=== PATIENT | male | born 1945 | race Caucasian/White ===

== ENCOUNTER 2019-03-23 15:20 | IRF | payer OTHER, MEDICARE, SELFPAY ==
--- NOTE | ~2019-03-23 | CT_ITS ---
EXAMINATION: CT brain wo con EXAM DATE: 03/27/2019 12:31 INDICATION: Temporary change in mental status. TECHNIQUE: Spiral CT of the head was performed without contrast. Axial, coronal and sagittal images were reviewed. The dose-length product (DLP) for this examination was 605.33 mGy-cm. The exposure w as tailored according to patient size, and iterative reconstruction (ASIR) was used as additional dos e reduction technique. There is no prior study for comparison. FINDINGS: There is small to moderate region of lost left temporal wilson-white differentiation consiste nt with infarction, probably subacute infarction. There is a left frontotemporal craniotomy defect. T here is a low density extra-axial region overlying the left parietal lobe which is lens shaped, measu ring about 4 cm diameter by 1 cm in maximal thickness, could be a subacute to chronic subdural or epi dural hematoma. There is no obstructive hydrocephalus. There is no acute intracranial hemorrhage. There is mild cereb ral atrophy and microangiopathy. No evidence of intracranial mass. Orbits and soft tissues are unrema rkable. IMPRESSION: 1. Small to moderate-sized left temporal lobe hypodensity, probably subacute infarction. No apprecia ble volume loss at this point which would indicate more chronic appearance. Overlying craniotomy. 2. Left parietal extra-axial low density fluid collection most likely subacute to chronic subdural o r epidural hematoma. 3. Age-related findings. 4. Are there any prior studies at outside institution for comparison? Reviewed, dictated and finalized at location A. NGING FUNERAL DIRECTOR IMPRESSION: 1. Small to moderate-sized left temporal lobe hypodensity, probably subacute i nfarction. No appreciable volume loss at this point which would indicate more c hronic appearance. Overlying craniotomy. 2. Left parietal extra-axial low density fluid collection most likely subacute to chronic subdural or epidural hematoma. 3. Age-related findings. 4. Are there any prior studies at outside institution for comparison?
--- NOTE | ~2019-03-23 | XR_ITS ---
XR chest 2V 04/09/2019 19:17 Indication: Pneumonia. Weakness. Procedure: AP and lateral views of the chest Comparison: 04/07/2019 Findings: Cardiomegaly. Extensive bilateral airspace consolidation with superimposed pulmonary fibros is of the lung bases. There are changes of left distal clavicular osteotomy. There is an anchor in th e left humeral head. No pneumothorax or pleural effusion. Impression: 1: There is bilateral symmetric airspace disease predominantly affecting the mid and lower lungs whic h may represent edema and/or pneumonia. 2: Probable superimposed chronic interstitial lung disease of the lung bases. Reviewed, dictated and finalized at location A. MECHANIC Impression: 1: There is bilateral symmetric airspace disease predominantly affecting the mi d and lower lungs which may represent edema and/or pneumonia. 2: Probable superimposed chronic interstitial lung disease of the lung bases.
--- NOTE | ~2019-03-23 | XR_ITS ---
EXAMINATION: XR chest 2V EXAM DATE: 04/07/2019 15:00 INDICATION: Leukocytosis, follow-up. TECHNIQUE: Frontal and lateral projections of the chest obtained and reviewed. There is no prior lakisha dy for comparison. FINDINGS: There is moderate amount of bilateral ill-defined airspace disease, probably pneumonia. Ed zoraida less likely. The cardiomediastinal silhouette is prominent but magnified on this AP technique. Th ere is no pneumothorax suspected. There are no pleural effusions. IMPRESSION: Moderate amount of ill-defined bibasilar airspace disease probably pneumonia. Reviewed, dictated and finalized at location A. AGING TECH
--- NOTE | 2019-03-23 18:13 | ADMGEN ---
This patient, Venkatesh Menard, was admitted to [facility] Room 225-02. Patient/family oriented to hospital policies and general routines including ID bracelet, bed and alarms, visiting hours, pain management, procedures, bathroom and other care routines, personal items, smoking policy, room service/diet, and visiting hours. Valuables list has been completed. Information on how to activate the Rapid Response Team has been discussed. Patient/Family are encouraged to report perceived risks to care and to ask questions if they do not understand what they are told or what they should do.
[2019-03-23 18:46] VITALS: BMI 37.9
[2019-03-23 19:24] VITALS: BP 110/57; PULSE 69; RESP 18; TEMP 36.6; O2SAT 98
[2019-03-23 20:57] VITALS: PULSE 62
[2019-03-23] MEDS: carvediloL 6.25 MG TABLET PO (20:57)
[2019-03-23] MEDS: FAMOTIDINE 20 MG TABLET PO (20:59)
[2019-03-23] MEDS: DILTIAZEM HCL 30 MG TABLET PO (21:00)
[2019-03-23] MEDS: levETIRAcetam 500 MG TABLET 1500 MG PO (21:00)
[2019-03-23] MEDS: MONTELUKAST SODIUM 10 MG TABLET PO (21:01)
[2019-03-23] MEDS: NIACIN SA 500 MG TABLET 2000 MG PO (21:02)
[2019-03-23] MEDS: HEPARIN SODIUM 5,000 UNITS/ML VIAL 5000 UNITS SUB-Q (21:03)
[2019-03-23] MEDS: PSYLLIUM POWDER PACKET 1 PACKET PO (21:03)
[2019-03-23] MEDS: ACETAMINOPHEN 325 MG TABLET 650 MG PO (21:07)
[2019-03-23 21:16] LABS: Glucose Point of Care 82 (65-105)
[2019-03-23 22:00] VITALS: BP 96/63; PULSE 76; RESP 18; TEMP 36.4; O2SAT 99
[2019-03-24] VITALS (12 sets, daily range): BP systolic 102–116; BP diastolic 56–73; PULSE 56–98; RESP 16–20; TEMP 36.6–37.2; O2SAT 90–100
[2019-03-24] MEDS: DILTIAZEM HCL 30 MG TABLET PO ×4 (02:24→17:43)
[2019-03-24 05:11] LABS: Basophils Absolute Auto 0.2 K/mm3 (0.0-0.1); Basophils Percent Auto 1.7 % (0.2-1.2); Eosinophils Absolute Auto 0.7 K/mm3 (0-0.3); Eosinophils Percent Auto 5.7 % (0-4.4); Hematocrit 37.6 % (42.0-52.0); Hemoglobin 11.5 g/dL (14.0-18.0); Immature Granulocyte Absolute 0.07 K/mm3 (0.00-0.031); Immature Granulocyte Percent A 0.6 % (0-0.5); Lymphocytes Absolute Auto 1.94 K/mm3 (0.9-3.2); Lymphocytes Percent Auto 16.2 % (18.3-44.2); Mean Corpuscular HGB Conc 30.6 g/dl (32-36); Mean Corpuscular Hemoglobin 28.5 pg (26-34); Mean Corpuscular Volume 93.1 fl (80-100); Mean Platelet Volume 10.6 fl (7.4-10.4); Monocytes Absolute Auto 1.8 K/mm3 (0.1-0.6); Monocytes Percent Auto 14.7 % (2.6-8.5); Neutrophils Absolute Auto 7.3 K/mm3 (1.3-6.7); Neutrophils Percent Auto 61.1 % (45.5-73.1); Platelet Count Result 420 k/mm3 (150-375); Red Blood Count 4.04 M/mm3 (4.6-6.20); Red Cell Distribution Width 17.8 % (11.5-14.5)
[2019-03-24] MEDS: HEPARIN SODIUM 5,000 UNITS/ML VIAL 5000 UNITS SUB-Q ×3 (05:56→21:01)
[2019-03-24 06:43] LABS: Blood Urea Nitrogen 42 mg/dL (9-20); Calcium 9.8 mg/dL (8.4-10.2); Carbon Dioxide 25 mmol/L (22-30); Chloride 102 mmol/L (98-107); Estimated CRCL calculation 74 ml/min; Estimated Glomerular Filt Rate > 60; Glucose 124 mg/dL (75-110); Potassium 4.3 mmol/L (3.4-5.0); Sodium 136 mmol/L (137-145)
[2019-03-24 07:03] LABS: Glucose Point of Care 131 (65-105)
--- NOTE | 2019-03-24 10:00 | WPDREHABHP ---
H&P: HPI History of Present Illness Chief complaint: Subdural Hematoma Narrative: Venkatesh Menard is a 74 year old maleHISTORY OF PRESENT ILLNESS: The patient's primary rehab impairment category is brain dysfunction/traumatic The etiologic diagnosis is subdural hematoma I saw this patient [id number] on March 24, 2019 at 10:00 a.m. The patient is a 74-year-old left-handed white male was recently hospitalized at [facility] from 02/06 through February 21, 2019 in the setting of a left convexity subdural hematoma after suffering a fall. He underwent a left craniotomy for evacuation on on February [address] Garcia. He was discharged to the [facility] [place] on February 21, 2019 for inpatient rehabilitation. The same day he presented to [facility] emergency department following an episode of apnea and desaturation in the 70s while at the [facility]. In the emergency department his saturation was 85% on room air. He was placed on supplemental oxygen. Physical examination revealed bilateral rhonchi and rales as well as bilateral lower extremity edema. Chest x-ray demonstrated new patchy airspace opacities, new small bilateral pleural effusions and suggestion of pulmonary edema. BNP was greater than 10,000, troponin 0.05, WBC count of 15,000 and urinalysis suggestive of urinary tract infection. Repeat CT of the head demonstrated persistent subdural hematoma with a small amount of pneumocephalus decreased in volume. Neurology was consulted and felt there was no need for neurosurgical intervention. They deferred management of the patient to be medicine team. Bilateral upper lower extremity Dopplers were negative for DVT. On February 23, 2019 the patient had witnessed tonic-clonic activity as well as right eye deviation and facial twitching. This was stabilized with Keppra. Vimpat and Ativan were also added. EEG monitoring showed left hemispheric slowing and moderate generalized slowing but no seizure activity. He has continued on Keppra 1500 milligram twice a day. On February 26, 2019 he was noted to have a purulent drainage from his craniotomy site and he was started on linezolid, cefepime and Flagyl. The drain is absent now. His aspirin was restarted for underlying coronary artery disease but Plavix remains on hold due to recent bleed. Repeat head CT on March 06, 2019 was stable. He did have a fall on March 16. On March 19, 2019 the patient reported bilateral frontal headaches. Repeated CT on March 19 demonstrated no acute intracranial process. Patient was ultimately weaned off of oxygen and is currently on room air. There is strict monitoring of INR knows and he is on Lasix 20 milligram daily. DVT prophylaxis with heparin is continued his diet has been upgraded to regular consistently with thin liquids. He is to get a supplemental tube feedings if he eats less than 50%. Patient does have aphasia but is able to communicate with some difficulty Therapy was initiated at the acute care facility and the patient transferred to us from [facility] on March 23, 2019 FALLS OR SURGERIES: The patient has had major surgeries in the 100 days prior to admission. They had falls in the past year. They had falls with injury in the past year. 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 PAST SURGICAL HISTORY: Status post craniotomy for evacuation on February 06, 2019, nephrectomy, coronary stent placement. SOCIAL HISTORY: Patient is a retired correct industrial truck operator. He does smokes cigarettes. The patient lives with his in a 1 level home with the level entry. The patient was completely independent prior with no assistive device.
[2019-03-24] MEDS: allopurinoL 100 MG TABLET PO (10:29)
[2019-03-24] MEDS: ASPIRIN 81 MG CHEWABLE TABLET PO (10:30)
[2019-03-24] MEDS: FAMOTIDINE 20 MG TABLET PO ×2 (10:31→20:57)
[2019-03-24] MEDS: FENOFIBRATE,MICRONIZED 48 MG TABLET PO (10:31)
[2019-03-24] MEDS: FUROSEMIDE 20 MG TABLET PO (10:31)
[2019-03-24] MEDS: levETIRAcetam 500 MG TABLET 1500 MG PO ×2 (10:31→20:57)
[2019-03-24] MEDS: INSULIN GLARGINE (*BKC) 100 UNITS/ML 40 UNITS SUB-Q (10:32)
[2019-03-24] MEDS: PAROXETINE 20 MG TABLET PO (10:32)
[2019-03-24] MEDS: ROSUVASTATIN 5 MG TABLET PO (10:32)
[2019-03-24] MEDS: PSYLLIUM POWDER PACKET 1 PACKET PO ×2 (10:32→21:00)
[2019-03-24] MEDS: carvediloL 6.25 MG TABLET PO ×2 (10:35→20:58)
[2019-03-24] MEDS: INSULIN ASPART (*BKC) 100 UNITS/ML 9 UNITS SUB-Q ×3 (11:13→17:44)
[2019-03-24 12:16] LABS: Glucose Point of Care 210 (65-105)
[2019-03-24] MEDS: INSULIN ASPART (*BKC) 100 UNITS/ML SUB-Q (12:38)
[2019-03-24] MEDS: ALBUTEROL SULFATE NEB 2.5 MG/0.5 ML INH INHALATION ×2 (13:53→20:13)
[2019-03-24 16:40] LABS: Glucose Point of Care 164 (65-105)
[2019-03-24] MEDS: NIACIN SA 500 MG TABLET 2000 MG PO (20:56)
[2019-03-24] MEDS: MONTELUKAST SODIUM 10 MG TABLET PO (21:00)
[2019-03-24 21:20] LABS: Glucose Point of Care 162 (65-105)
[2019-03-25] VITALS (12 sets, daily range): BP systolic 93–99; BP diastolic 40–71; PULSE 56–101; RESP 16–20; TEMP 36.5–37; O2SAT 92–98
[2019-03-25] MEDS: DILTIAZEM HCL 30 MG TABLET PO ×5 (00:11→22:33)
[2019-03-25] MEDS: HEPARIN SODIUM 5,000 UNITS/ML VIAL 5000 UNITS SUB-Q ×3 (05:50→21:13)
[2019-03-25 06:22] LABS: Glucose Point of Care 162 (65-105)
[2019-03-25] MEDS: ALBUTEROL SULFATE NEB 2.5 MG/0.5 ML INH INHALATION ×3 (09:23→19:04)
[2019-03-25] MEDS: allopurinoL 100 MG TABLET PO (10:54)
[2019-03-25] MEDS: FUROSEMIDE 20 MG TABLET PO (10:55)
[2019-03-25] MEDS: PAROXETINE 20 MG TABLET PO (10:55)
[2019-03-25] MEDS: FENOFIBRATE,MICRONIZED 48 MG TABLET PO (10:55)
[2019-03-25] MEDS: ROSUVASTATIN 5 MG TABLET PO (10:55)
[2019-03-25] MEDS: ASPIRIN 81 MG CHEWABLE TABLET PO (10:56)
[2019-03-25] MEDS: FAMOTIDINE 20 MG TABLET PO ×2 (10:56→21:12)
[2019-03-25] MEDS: PSYLLIUM POWDER PACKET 1 PACKET PO ×2 (10:58→21:11)
[2019-03-25] MEDS: levETIRAcetam 500 MG TABLET 1500 MG PO ×2 (10:58→21:12)
[2019-03-25] MEDS: INSULIN ASPART (*BKC) 100 UNITS/ML 9 UNITS SUB-Q ×3 (11:00→18:06)
[2019-03-25] MEDS: INSULIN GLARGINE (*BKC) 100 UNITS/ML 40 UNITS SUB-Q (11:05)
[2019-03-25 12:24] LABS: Glucose Point of Care 207 (65-105)
[2019-03-25] MEDS: INSULIN ASPART (*BKC) 100 UNITS/ML SUB-Q (13:55)
[2019-03-25] MEDS: carvediloL 6.25 MG TABLET PO ×2 (13:56→21:13)
[2019-03-25 17:36] LABS: Glucose Point of Care 197 (65-105)
--- NOTE | 2019-03-25 18:22 | WPDNEURORHBP ---
Subjective Date/time seen: 03/25/19 18:22 Interval history: patient has mild headache and aphasic defect which is clearer with this examiner talks to him repeatedly his also weak however not aware of it right more so than the left side He denies any shortness of breath chest pain and follows commands quite well so the information he is given to this examiner is quite acute in spite of the aphasic Review of Systems Review of Systems: All systems reviewed & are unremarkable except as noted in HPI and below Functional Status Ambulation Ability Ambulation Assistive Devices: Walker, Wheeled Exam Const: General: comfortable and no acute distress Eyes: General: appearance normal, both eyes and all related structures Neck: Neck: supple and no JVD Resp: Effort & Inspection: normal respiratory effort Auscultation: clear to auscultation bilaterally Cardio: Rate: regular rate Rhythm: regular rhythm GI: GI Palp: Yes soft Auscultation: normal bowel sounds Other: the G-tube is functioning well and the site looks clean Skin: General skin exam: normal color and no rashes or lesions noted Neuro: Other: aphasia and right-sided hemiparesis, the aphasic component is excessive more so than the comprehensive as the patient is able to follow simple commands Extrem: General: normal to inspection Objective Data Vital Signs Vital Signs: Vital Signs - 24 hr 03/24/19 20:15 03/24/19 20:19 03/24/19 20:25 Temperature Pulse Rate 56 L 60 Respiratory Rate 16 16 Blood Pressure Pulse Oximetry 95 03/24/19 20:58 03/24/19 22:00 03/25/19 06:00 Temperature 37.2 C 36.5 C Pulse Rate 72 56 L 78 Respiratory Rate 19 19 Blood Pressure 102/56 L 99/71 L Pulse Oximetry 95 98 03/25/19 09:24 03/25/19 09:32 03/25/19 13:56 Temperature Pulse Rate 80 83 76 Respiratory Rate 20 16 Blood Pressure Pulse Oximetry 03/25/19 14:00 03/25/19 15:15 03/25/19 15:23 Temperature 37.0 C Pulse Rate 56 L 83 84 Respiratory Rate 18 16 16 Blood Pressure 93/42 L Pulse Oximetry 92 Intake/Output Intake/Output: Intake & Output 03/22/19 03/23/19 03/24/19 03/25/19 23:59 23:59 23:59 23:59 Intake Total 1340 480 Balance 1340 480 Meds/Results Medications: Active Medications Generic Name Dose Route Start Last Admin Trade Name Freq PRN Reason Stop Dose Admin Acetaminophen 650 mg 03/23/19 17:44 03/23/19 21:07 Tylenol Tablet PO 650 mg Q4H PRN Administration Headache Albuterol 2.5 mg 03/24/19 08:00 03/25/19 15:15 Albuterol Sulf Neb 2.5mg/0.5ml INHALATION 2.5 mg TIDRT MAXINE Administration Allopurinol 100 mg 03/24/19 08:00 03/25/19 10:54 Zyloprim PO 100 mg DAILY@0800 MAXINE Administration Aspirin 81 mg 03/24/19 08:00 03/25/19 10:56 Aspirin Chewable PO 81 mg DAILY@0800 MAXINE Administration Carvedilol 6.25 mg 03/23/19 21:00 03/25/19 13:56 Coreg PO 6.25 mg Q12HR MAXINE Administration Dextrose 12.5 gm 03/23/19 15:53 Dextrose 50% Syringe IV PUSH PRN PRN Hypoglycemia Protocol Diltiazem HCl 30 mg 03/23/19 18:00 03/25/19 18:08 Cardizem Tab PO 30 mg Q6HR MAXINE Administration Famotidine 20 mg 03/23/19 21:00 03/25/19 10:56 Pepcid PO 20 mg Q12HR MAXINE Administration Fenofibrate 48 mg 03/24/19 09:00 03/25/19 10:55 Tricor PO 48 mg QAM MAXINE Administration Furosemide 20 mg 03/24/19 09:00 03/25/19 10:55 Lasix Tablet PO 20 mg DAILY MAXINE Administration Glucagon 1 mg 03/23/19 15:53 Glucagon For Inj IM PRN PRN Hypoglycemia Protocol Glucose 15 gm 03/23/19 15:53 Glutose 15 PO PRN PRN Hypoglycemia Protocol Heparin Sodium (Porcine) 5,000 units 03/23/19 22:00 03/25/19 14:25 Heparin Sodium SUB-Q 5,000 units Q8HR MAXINE Administration Dextrose 1,000 mls @ 100 mls/hr 03/23/19 15:53 Dextrose 5% 1,000 Ml IVPB PRN PRN Hypoglycemia Protocol Insulin As
[2019-03-25] MEDS: ACETAMINOPHEN 325 MG TABLET 650 MG PO (18:26)
[2019-03-25 21:02] LABS: Glucose Point of Care 202 (65-105)
[2019-03-25] MEDS: NIACIN SA 500 MG TABLET 2000 MG PO (21:12)
[2019-03-25] MEDS: MONTELUKAST SODIUM 10 MG TABLET PO (21:13)
[2019-03-26] VITALS (12 sets, daily range): BP systolic 104–127; BP diastolic 36–63; PULSE 67–91; RESP 16–20; TEMP 36.5–37.3; O2SAT 95–97; BMI 37.9
[2019-03-26] MEDS: DILTIAZEM HCL 30 MG TABLET PO ×4 (05:35→23:27)
[2019-03-26] MEDS: HEPARIN SODIUM 5,000 UNITS/ML VIAL 5000 UNITS SUB-Q ×3 (05:36→21:00)
[2019-03-26 06:31] LABS: Glucose Point of Care 165 (65-105)
[2019-03-26] MEDS: ALBUTEROL SULFATE NEB 2.5 MG/0.5 ML INH INHALATION ×3 (07:55→20:35)
[2019-03-26] MEDS: INSULIN ASPART (*BKC) 100 UNITS/ML 9 UNITS SUB-Q ×3 (09:53→17:53)
[2019-03-26] MEDS: allopurinoL 100 MG TABLET PO (09:54)
[2019-03-26] MEDS: FAMOTIDINE 20 MG TABLET PO ×2 (09:54→20:59)
[2019-03-26] MEDS: carvediloL 6.25 MG TABLET PO ×2 (09:54→20:59)
[2019-03-26] MEDS: ASPIRIN 81 MG CHEWABLE TABLET PO (09:54)
[2019-03-26] MEDS: INSULIN GLARGINE (*BKC) 100 UNITS/ML 40 UNITS SUB-Q (09:55)
[2019-03-26] MEDS: levETIRAcetam 500 MG TABLET 1500 MG PO ×2 (09:55→20:58)
[2019-03-26] MEDS: FENOFIBRATE,MICRONIZED 48 MG TABLET PO (09:55)
[2019-03-26] MEDS: FUROSEMIDE 20 MG TABLET PO (09:55)
[2019-03-26] MEDS: ROSUVASTATIN 5 MG TABLET PO (09:56)
[2019-03-26] MEDS: PAROXETINE 20 MG TABLET PO (09:56)
[2019-03-26] MEDS: PSYLLIUM POWDER PACKET 1 PACKET PO ×2 (09:56→20:59)
[2019-03-26 12:04] LABS: Glucose Point of Care 234 (65-105)
--- NOTE | 2019-03-26 12:39 | RPD ---
INDIVIDUALIZED PLAN OF CARE FOR Venkatesh Menard Brief Synthesis of Pre-Admission Screen, Post-Admission Evaluation and Therapy Evaluations: The patient presents to rehab with subdural hematoma. Comorbidities include status post left craniotomy 02/07, aphasia, acute respiratory failure, generalized tonic-clonic seizures, purulent discharge from surgical wound, leukocytosis, fungal rash, renal cell carcinoma, dysphagia, atrial fibrillation, hypertension, coronary artery disease, chronic kidney disease, diabetes mellitus, chronic obstructive pulmonary disease. The patient needs physician monitoring and treatment of anemia, perioperative blood loss, monitoring for adverse reactions to new medications, monitoring of infection, and seizure management. The patient requires nursing services for frequent neuro checks, anticoagulation therapy, medication management and education, pressure relief and skin care management, monitoring of labs, bowel and bladder training, diabetes management and education, and fall/safety precautions. Deficits include:ADLs, Balance, Cognition, Endurance, Mobility, Pain Management, ROM, Safety, Speech, Strength, Transfers [employer]ing [employer] Operator/Case Management for: Discharge Planning and Patient/Family Counseling Physical Therapy: 5 days per week for 60 minutes. Treatments may include: Therapeutic Exercise, Gait Training, Neuromuscular Re-education, Transfer Training, Community Reintegration, Bed Mobility, Patient/Family Education, Wheelchair Mobility Group Therapy/Concurrent Therapy Rationales: -Improve attention span during functional activities in a distracted environment. -Enhance problem solving and/or adequate judgment skills during functional activities in a distracted environment. -Promote increased safety awareness in a distracted environment to reduce fall risk with functional tasks, transfers, and ambulation to allow a more safe, self-sufficient return to the home environment. -Improve dynamic balance skills to promote safety and independence with functional activities in a distracted environment for maximum gain. Occupational Therapy: 5 days per week for 60 minutes. Treatments may include: Therapeutic Exercise, Therapeutic Activity, Cognitive Training, Self-Care Transfer Training, Community Reintegration, Home Management, Patient/Family Education, Wheelchair Mobility Training, Energy Conservation Training Group Therapy/Concurrent Therapy Rationales: -Allow therapist to observe and teach generalization and carry-over of skills learned in individual therapy. -Enhance problem solving and sequencing skills during therapeutic activities in a distracted environment. -Promote increased safety awareness in a realistic setting to reduce fall risk with functional tasks due to visual and verbal distractions. -Increase functional level with ADLs, ADL transfers and use of adaptive equipment through therapeutic activities with others while promoting safety to allow a more safe, self-sufficient return home. Speech Therapy: 5 days per week for 60 minutes. Treatments may include: Dysphasia Therapy, Speech/Language/Communication Therapy, Cognitive Training, Patient/Family Education Group Therapy/Concurrent Therapy - Rationale: -Allow therapist to observe and teach generalization and carry-over of skills learned in individual therapy. -Improve comprehension skills with complex or abstract ideas through discussion in a realistic setting. -Enhance problem solving skills with complex issues during activities in a distracted environment. -Promote increased memory skills and concentration in a distracted environment for a safe transition home. -Improve attention and focus with language/communication skills in a realistic and supportive therapeutic setting. -Allow for practice of expression of basic needs and ideas through functional activities with others. Medical Prognosis: Good Anticipated Length of Stay: 14 days Rehab Goals: Eating Goal: 06-Independent
[2019-03-26] MEDS: INSULIN ASPART (*BKC) 100 UNITS/ML SUB-Q ×2 (13:17→18:15)
--- NOTE | 2019-03-26 14:55 | PCOTNOTE ---
Pt. unmotivated during session. Stated 10 minutes into session he was too tiered to work any longer, I just cant . Max verbal encouragement throughout AM and PM session. Set scheduling could possibly benefit pt. with scheduled rest breaks.
--- NOTE | 2019-03-26 15:56 | PCPTNOTE ---
Patient refused treatment this session. Attempts made at 13:00 and 14:10, however patient refused to participate. Despite max verbal cues and tactile cues, patient would not stay awake to communicate/participate. Patient would grunt and state he is too tired, then roll over and fall back asleep on both attempts. Patient missed 30 minutes of PT this date.
--- NOTE | 2019-03-26 16:23 | PCSTNOTE ---
Patient refused treatment this session due to headache
[2019-03-26 17:01] LABS: Glucose Point of Care 240 (65-105)
[2019-03-26] MEDS: ACETAMINOPHEN 325 MG TABLET 650 MG PO (19:50)
[2019-03-26] MEDS: MONTELUKAST SODIUM 10 MG TABLET PO (20:59)
[2019-03-26] MEDS: NIACIN SA 500 MG TABLET 2000 MG PO (20:59)
[2019-03-26 21:13] LABS: Glucose Point of Care 192 (65-105)
[2019-03-27] VITALS (11 sets, daily range): BP systolic 120–132; BP diastolic 55–64; PULSE 54–96; RESP 16–20; TEMP 36.3–36.7; O2SAT 95–99
[2019-03-27] MEDS: DILTIAZEM HCL 30 MG TABLET PO ×4 (06:34→23:18)
[2019-03-27] MEDS: HEPARIN SODIUM 5,000 UNITS/ML VIAL 5000 UNITS SUB-Q ×3 (06:34→21:16)
[2019-03-27 06:59] LABS: Glucose Point of Care 175 (65-105)
[2019-03-27] MEDS: ALBUTEROL SULFATE NEB 2.5 MG/0.5 ML INH INHALATION ×3 (07:46→21:00)
[2019-03-27] MEDS: INSULIN ASPART (*BKC) 100 UNITS/ML 9 UNITS SUB-Q ×3 (08:15→17:34)
[2019-03-27] MEDS: allopurinoL 100 MG TABLET PO (08:19)
[2019-03-27] MEDS: ASPIRIN 81 MG CHEWABLE TABLET PO (08:19)
[2019-03-27] MEDS: FUROSEMIDE 20 MG TABLET PO (08:20)
[2019-03-27] MEDS: FENOFIBRATE,MICRONIZED 48 MG TABLET PO (08:20)
[2019-03-27] MEDS: FAMOTIDINE 20 MG TABLET PO ×2 (08:20→20:13)
[2019-03-27] MEDS: carvediloL 6.25 MG TABLET PO ×2 (08:20→20:12)
[2019-03-27] MEDS: INSULIN GLARGINE (*BKC) 100 UNITS/ML 40 UNITS SUB-Q (08:20)
[2019-03-27] MEDS: levETIRAcetam 500 MG TABLET 1500 MG PO ×2 (08:21→20:13)
[2019-03-27] MEDS: PSYLLIUM POWDER PACKET 1 PACKET PO ×2 (08:21→20:12)
[2019-03-27] MEDS: PAROXETINE 20 MG TABLET PO (08:21)
[2019-03-27] MEDS: ROSUVASTATIN 5 MG TABLET PO (08:21)
[2019-03-27 11:38] LABS: Glucose Point of Care 222 (65-105)
[2019-03-27] MEDS: INSULIN ASPART (*BKC) 100 UNITS/ML SUB-Q (11:48)
--- NOTE | 2019-03-27 11:51 | PCDIET ---
Nutrition Follow-Up Complete: Nutrition Diagnosis: Inadequate oral intake related to multiple medical issues, primarily recent SDH, as evidenced by intakes 0-25% and need for supplemental enteral feedings. Nutrition Goal: Intakes improved to >50%, tube feeding tolerance (when given) Oral intake goal not met with patient consuming 0-25% of meals on diabetic, 2 gram sodium diet, which is appropriate. Patient receiving 240mL Jevity 1.5 bolus for meal intakes <50% with no issues tolerating reported. Order for g-tube flush of 50mL every 4 hours. Last recorded weight is 120 kg. Recommend obtaining new weight. Bowel Motility: Last documented bowel movement on 03/25/19. Labs Reviewed: Glu (222) Meds Noted: Albuterol, Pepcid, Lasix, Novolog, Lantus, Metamucil Additional Notes: Agree with oral diet. Tube feeding bolus provides 51g carbohydrate each. Recommend adjusting glycemic medications prn; if no improvement in glucose levels, may have to consider change to diabetic formula in larger volume bolus (1.2cal/mL). Patient with incision on head; no documented pressure ulcers. Will continue to monitor with same goals. Nutrition Monitoring and Evaluation: Follow up every Tuesday/Tuesday.
--- NOTE | 2019-03-27 13:23 | WPDNEURORHBP ---
Subjective Date/time seen: 03/27/19 13:23 Interval history: patient is a relatively sleepy and does not engage in much of therapy got more history from the was on the telephone for the team conference and she reiterated the patient has metastatic renal carcinoma to lungs and pancreas for he which she received chemotherapy in the recent past however at this point he really does not have an of preserve neurological E to sustain a chemotherapy regimen Review of Systems Review of Systems: All systems reviewed & are unremarkable except as noted in HPI and below Functional Status Ambulation Ability Ability to Ambulate 10 Feet: Minimum Assistance X 1 Ability to Ambulate 50 Feet With 2 Turns: Minimum Assistance X 1 Ambulation Assistive Devices: Walker, Wheeled Transfers Ability Ability to Transfer In/Out of Chair: Contact Guard Exam Const: General: comfortable and no acute distress Eyes: General: appearance normal, both eyes and all related structures Neck: Neck: supple and no JVD Resp: Effort & Inspection: normal respiratory effort Auscultation: clear to auscultation bilaterally Cardio: Rate: regular rate Rhythm: regular rhythm GI: GI Palp: Yes Soft to palpation Auscultation: normal bowel sounds Skin: General skin exam: normal color and no rashes or lesions noted Neuro: Other: patient is sleepy does have aphasia and generalized weakness along with predominantly right-sided weakness with positive Babinski bilaterally overall according to he is better than what he used to be however our therapy team tells us that the patient is not doing as well as the dad couple of days ago Extrem: General: normal to inspection Objective Data Vital Signs Vital Signs: Vital Signs - 24 hr 03/26/19 14:00 03/26/19 14:24 03/26/19 14:31 Temperature 37.0 C Pulse Rate 91 81 80 Respiratory Rate 18 16 16 Blood Pressure 120/54 L Pulse Oximetry 97 03/26/19 20:35 03/26/19 20:42 03/26/19 20:59 Temperature Pulse Rate 71 72 72 Respiratory Rate 16 16 Blood Pressure Pulse Oximetry 03/26/19 22:00 03/27/19 06:00 03/27/19 07:46 Temperature 37.3 C 36.7 C Pulse Rate 76 81 71 Respiratory Rate 19 19 20 Blood Pressure 104/36 L 126/55 L Pulse Oximetry 97 97 98 03/27/19 07:54 03/27/19 08:20 Temperature Pulse Rate 86 86 Respiratory Rate 20 Blood Pressure Pulse Oximetry Intake/Output Intake/Output: Intake & Output 03/24/19 03/25/19 03/26/19 03/27/19 23:59 23:59 23:59 23:59 Intake Total 1340 1880 1080 100 Balance 1340 1880 1080 100 Meds/Results Medications: Active Medications Generic Name Dose Route Start Last Admin Trade Name Freq PRN Reason Stop Dose Admin Acetaminophen 650 mg 03/23/19 17:44 03/26/19 19:50 Tylenol Tablet PO 650 mg Q4H PRN Administration Headache Albuterol 2.5 mg 03/24/19 08:00 03/27/19 07:46 Albuterol Sulf Neb 2.5mg/0.5ml INHALATION 2.5 mg TIDRT MAXINE Administration Allopurinol 100 mg 03/24/19 08:00 03/27/19 08:19 Zyloprim PO 100 mg DAILY@0800 MAXINE Administration Aspirin 81 mg 03/24/19 08:00 03/27/19 08:19 Aspirin Chewable PO 81 mg DAILY@0800 MAXINE Administration Carvedilol 6.25 mg 03/23/19 21:00 03/27/19 08:20 Coreg PO 6.25 mg Q12HR MAXINE Administration Dextrose 12.5 gm 03/23/19 15:53 Dextrose 50% Syringe IV PUSH PRN PRN Hypoglycemia Protocol Diltiazem HCl 30 mg 03/23/19 18:00 03/27/19 11:48 Cardizem Tab PO 30 mg Q6HR MAXINE Administration Famotidine 20 mg 03/23/19 21:00 03/27/19 08:20 Pepcid PO 20 mg Q12HR MAXINE Administration Fenofibrate 48 mg 03/24/19 09:00 03/27/19 08:20 Tricor PO 48 mg QAM MAXINE Administration Furosemide 20 mg 03/24/19 09:00 03/27/19 08:20 Lasix Tablet PO 20 mg DAILY MAXINE Administration Glucagon 1 mg 03/23/19 15:53 Glucagon For Inj IM PRN PRN Hypoglycemia Protocol Glucose 15 gm 03/23/19 15:53
[2019-03-27 14:21] LABS: Blood Urea Nitrogen 26 mg/dL (9-20); Calcium 9.6 mg/dL (8.4-10.2); Carbon Dioxide 30 mmol/L (22-30); Chloride 96 mmol/L (98-107); Estimated CRCL calculation 68 ml/min; Estimated Glomerular Filt Rate > 60; Glucose 262 mg/dL (75-110); Potassium 4.6 mmol/L (3.4-5.0); Sodium 134 mmol/L (137-145)
[2019-03-27 17:02] LABS: Glucose Point of Care 180 (65-105)
[2019-03-27] MEDS: NIACIN SA 500 MG TABLET 2000 MG PO (20:12)
[2019-03-27] MEDS: MONTELUKAST SODIUM 10 MG TABLET PO (20:13)
[2019-03-27 20:50] LABS: Glucose Point of Care 124 (65-105)
[2019-03-28] VITALS (8 sets, daily range): BP systolic 117–122; BP diastolic 68–72; PULSE 76–90; RESP 16–20; TEMP 36.2–36.7; O2SAT 92–98
[2019-03-28] MEDS: DILTIAZEM HCL 30 MG TABLET PO ×3 (05:41→18:06)
[2019-03-28] MEDS: HEPARIN SODIUM 5,000 UNITS/ML VIAL 5000 UNITS SUB-Q ×3 (05:41→21:05)
[2019-03-28 06:53] LABS: Glucose Point of Care 165 (65-105)
[2019-03-28] MEDS: ALBUTEROL SULFATE NEB 2.5 MG/0.5 ML INH INHALATION (07:42)
[2019-03-28] MEDS: allopurinoL 100 MG TABLET PO (10:35)
[2019-03-28] MEDS: ASPIRIN 81 MG CHEWABLE TABLET PO (10:35)
[2019-03-28] MEDS: FAMOTIDINE 20 MG TABLET PO ×2 (10:36→21:02)
[2019-03-28] MEDS: carvediloL 6.25 MG TABLET PO ×2 (10:36→21:04)
[2019-03-28] MEDS: FENOFIBRATE,MICRONIZED 48 MG TABLET PO (10:37)
[2019-03-28] MEDS: levETIRAcetam 500 MG TABLET 1500 MG PO ×2 (10:37→21:03)
[2019-03-28] MEDS: PAROXETINE 20 MG TABLET PO (10:37)
[2019-03-28] MEDS: FUROSEMIDE 20 MG TABLET PO (10:37)
[2019-03-28] MEDS: ROSUVASTATIN 5 MG TABLET PO (10:38)
[2019-03-28] MEDS: PSYLLIUM POWDER PACKET 1 PACKET PO ×2 (10:38→21:05)
[2019-03-28] MEDS: INSULIN ASPART (*BKC) 100 UNITS/ML 9 UNITS SUB-Q ×3 (10:43→18:04)
[2019-03-28] MEDS: INSULIN GLARGINE (*BKC) 100 UNITS/ML 40 UNITS SUB-Q (10:44)
[2019-03-28 12:38] LABS: Glucose Point of Care 226 (65-105)
[2019-03-28] MEDS: INSULIN ASPART (*BKC) 100 UNITS/ML SUB-Q (12:41)
[2019-03-28] MEDS: DEXAMETHASONE 4 MG TABLET PO ×2 (12:42→17:59)
--- NOTE | 2019-03-28 13:40 | WPDNEURORHBP ---
Subjective Date/time seen: 03/28/19 13:40 Interval history: patient is definitely more alert and awake and able to follow commands and able to communicate much better comparing to previous days he continues to have headache and the CT scan we did shows evidence of subacute subdural hematoma and also stroke with the hyperdensity noted and the CT reviewed we have called the tertiary care facility for them to review the CT scan however did not get a call back from them in any event I am planning to treat him would short course of Decadron to see if he is able to engage in therapy Review of Systems Review of Systems: All systems reviewed & are unremarkable except as noted in HPI and below Constitutional: Comments: he continues to have headache and his excuses that because of headache he cannot do the therapy and he is tired almost all the time and sleepy all the time Functional Status Ambulation Ability Ability to Ambulate 10 Feet: Minimum Assistance X 1 Ability to Ambulate 50 Feet With 2 Turns: Minimum Assistance X 1 Ambulation Assistive Devices: Walker, Wheeled Transfers Ability Ability to Transfer In/Out of Chair: Contact Guard Exam Const: General: comfortable and no acute distress Eyes: General: appearance normal, both eyes and all related structures Neck: Neck: supple and no JVD Resp: Effort & Inspection: normal respiratory effort Auscultation: clear to auscultation bilaterally Cardio: Rate: regular rate Rhythm: regular rhythm GI: GI Palp: Yes Soft to palpation Auscultation: normal bowel sounds Skin: General skin exam: normal color and no rashes or lesions noted Neuro: Other: the speech defect is improving the generalized weakness is improving but the patient is sleepy and tired and that does not help for the PT and OT personnel the craniotomy site is also clean Extrem: General: normal to inspection Objective Data Vital Signs Vital Signs: Vital Signs - 24 hr 03/27/19 14:00 03/27/19 14:22 03/27/19 14:34 Temperature 36.6 C Pulse Rate 86 92 96 Respiratory Rate 20 16 18 Blood Pressure 132/64 Pulse Oximetry 98 03/27/19 20:12 03/27/19 21:00 03/27/19 21:09 Temperature Pulse Rate 88 54 L 61 Respiratory Rate 16 16 Blood Pressure Pulse Oximetry 99 03/27/19 22:00 03/28/19 06:00 03/28/19 07:44 Temperature 36.3 C L 36.2 C L Pulse Rate 75 85 90 Respiratory Rate 20 19 16 Blood Pressure 120/58 L 117/68 Pulse Oximetry 95 93 03/28/19 07:45 03/28/19 07:51 03/28/19 10:36 Temperature Pulse Rate 84 84 Respiratory Rate 20 Blood Pressure Pulse Oximetry 92 Intake/Output Intake/Output: Intake & Output 03/25/19 03/26/19 03/27/19 03/28/19 23:59 23:59 23:59 23:59 Intake Total 1880 1080 320 420 Output Total 600 Balance 1880 1080 320 -180 Meds/Results Medications: Active Medications Generic Name Dose Route Start Last Admin Trade Name Freq PRN Reason Stop Dose Admin Acetaminophen 650 mg 03/23/19 17:44 03/26/19 19:50 Tylenol Tablet PO 650 mg Q4H PRN Administration Headache Albuterol 2.5 mg 03/24/19 08:00 03/28/19 07:42 Albuterol Sulf Neb 2.5mg/0.5ml INHALATION 2.5 mg TIDRT MAXINE Administration Allopurinol 100 mg 03/24/19 08:00 03/28/19 10:35 Zyloprim PO 100 mg DAILY@0800 MAXINE Administration Aspirin 81 mg 03/24/19 08:00 03/28/19 10:35 Aspirin Chewable PO 81 mg DAILY@0800 MAXINE Administration Carvedilol 6.25 mg 03/23/19 21:00 03/28/19 10:36 Coreg PO 6.25 mg Q12HR MAXINE Administration Dexamethasone 4 mg 03/28/19 12:10 03/28/19 12:42 Dexamethasone Po PO 4 mg BID MAXINE Administration Dextrose 12.5 gm 03/23/19 15:53 Dextrose 50% Syringe IV PUSH PRN PRN Hypoglycemia Protocol Diltiazem HCl 30 mg 03/23/19 18:00 03/28/19 12:42 Cardizem Tab PO 30 mg Q6HR MAXINE Administration Famotidine 20 mg 03/23/19 21:00 03/28/19 10:36 Pepcid PO 20 mg Q12HR MAXINE Administr
[2019-03-28 17:30] LABS: Glucose Point of Care 198 (65-105)
[2019-03-28] MEDS: NIACIN SA 500 MG TABLET 2000 MG PO (21:00)
[2019-03-28] MEDS: PANTOPRAZOLE 40 MG TABLET PO (21:02)
[2019-03-28] MEDS: MONTELUKAST SODIUM 10 MG TABLET PO (21:02)
[2019-03-28 21:20] LABS: Glucose Point of Care 251 (65-105)
[2019-03-29 06:00] VITALS: BP 121/85; PULSE 77; RESP 20; TEMP 36.1; O2SAT 98
[2019-03-29] MEDS: DILTIAZEM HCL 30 MG TABLET PO ×5 (06:01→23:48)
[2019-03-29] MEDS: HEPARIN SODIUM 5,000 UNITS/ML VIAL 5000 UNITS SUB-Q ×3 (06:04→20:54)
[2019-03-29 07:02] LABS: Glucose Point of Care 250 (65-105)
--- NOTE | 2019-03-29 09:30 | WPDNEURORHBP ---
Subjective Date/time seen: March 29, 2019 at 9:30 a.m. Interval history: patient is relatively much more alert his headaches are better and is engage in therapy better his speech defect and right-sided weakness is better and the family is happy about it his motivational factor is at best fair and he was counseled Review of Systems Review of Systems: All systems reviewed & are unremarkable except as noted in HPI and below Functional Status Ambulation Ability Ability to Ambulate 10 Feet: Contact Guard Ability to Ambulate 50 Feet With 2 Turns: Contact Guard Ambulation Assistive Devices: Walker, Wheeled Transfers Ability Ability to Transfer In/Out of Chair: Standby Assistance Exam Const: General: comfortable and no acute distress Eyes: General: appearance normal, both eyes and all related structures Neck: Neck: supple and no JVD Resp: Effort & Inspection: normal respiratory effort Auscultation: clear to auscultation bilaterally Cardio: Rate: regular rate Rhythm: regular rhythm GI: GI Palp: Yes Soft to palpation Auscultation: normal bowel sounds Skin: General skin exam: normal color and no rashes or lesions noted Neuro: Other: patient's mental status is getting better aphasia is getting better right-sided weakness is better motivational factor is at best fair following all commands quite well and eating much better Extrem: General: normal to inspection Objective Data Vital Signs Vital Signs: Vital Signs - 24 hr 03/29/19 14:00 03/29/19 20:46 03/29/19 22:00 Temperature 36.6 C 36.7 C Pulse Rate 73 73 68 Respiratory Rate 18 20 Blood Pressure 126/64 114/53 L Pulse Oximetry 96 98 03/30/19 06:00 03/30/19 10:23 Temperature 36.8 C Pulse Rate 81 92 Respiratory Rate 19 Blood Pressure 101/44 L Pulse Oximetry 96 Intake/Output Intake/Output: Intake & Output 03/27/19 03/28/19 03/29/19 03/30/19 23:59 23:59 23:59 23:59 Intake Total 320 1100 1340 120 Output Total 600 400 Balance 320 500 940 120 Meds/Results Medications: Active Medications Generic Name Dose Route Start Last Admin Trade Name Freq PRN Reason Stop Dose Admin Acetaminophen 650 mg 03/23/19 17:44 03/29/19 20:48 Tylenol Tablet PO 650 mg Q4H PRN Administration Headache Albuterol 2.5 mg 03/28/19 14:38 Albuterol Sulf Neb 2.5mg/0.5ml INHALATION 04/03/19 23:59 Q6HRT PRN Shortness Of Breath Or Wheezing Allopurinol 100 mg 03/24/19 08:00 03/30/19 10:20 Zyloprim PO 100 mg DAILY@0800 MAXINE Administration Aspirin 81 mg 03/24/19 08:00 03/30/19 10:20 Aspirin Chewable PO 81 mg DAILY@0800 MAXINE Administration Carvedilol 6.25 mg 03/23/19 21:00 03/30/19 10:23 Coreg PO 6.25 mg Q12HR MAXINE Administration Dexamethasone 4 mg 03/28/19 12:10 03/30/19 10:21 Dexamethasone Po PO 4 mg BID MAXINE Administration Dextrose 12.5 gm 03/23/19 15:53 Dextrose 50% Syringe IV PUSH PRN PRN Hypoglycemia Protocol Diltiazem HCl 30 mg 03/23/19 18:00 03/30/19 06:22 Cardizem Tab PO 30 mg Q6HR MAXINE Administration Famotidine 20 mg 03/23/19 21:00 03/30/19 10:21 Pepcid PO 20 mg Q12HR MAXINE Administration Fenofibrate 48 mg 03/24/19 09:00 03/30/19 10:21 Tricor PO 48 mg QAM MAXINE Administration Furosemide 20 mg 03/24/19 09:00 03/30/19 10:22 Lasix Tablet PO 20 mg DAILY MAXINE Administration Glucagon 1 mg 03/23/19 15:53 Glucagon For Inj IM PRN PRN Hypoglycemia Protocol Glucose 15 gm 03/23/19 15:53 Glutose 15 PO PRN PRN Hypoglycemia Protocol Heparin Sodium (Porcine) 5,000 units 03/23/19 22:00 03/30/19 06:18 Heparin Sodium SUB-Q 5,000 units Q8HR MAXINE Administration Dextrose 1,000 mls @ 100 mls/hr 03/23/19 15:53 Dextrose 5% 1,000 Ml IVPB PRN PRN Hypoglycemia Protocol Insulin Aspart 9 units 03/24/19 08:00 03/30/19 10:31 Novolog SUB-Q 9 units [facility] Ad
[2019-03-29 09:44] VITALS: PULSE 77
[2019-03-29] MEDS: INSULIN ASPART (*BKC) 100 UNITS/ML 9 UNITS SUB-Q ×3 (09:44→17:35)
[2019-03-29] MEDS: carvediloL 6.25 MG TABLET PO ×2 (09:44→20:46)
[2019-03-29] MEDS: FAMOTIDINE 20 MG TABLET PO ×2 (09:44→20:46)
[2019-03-29] MEDS: PSYLLIUM POWDER PACKET 1 PACKET PO (09:45)
[2019-03-29] MEDS: levETIRAcetam 500 MG TABLET 1500 MG PO ×2 (09:45→20:46)
[2019-03-29] MEDS: FUROSEMIDE 20 MG TABLET PO (09:46)
[2019-03-29] MEDS: ASPIRIN 81 MG CHEWABLE TABLET PO (09:46)
[2019-03-29] MEDS: allopurinoL 100 MG TABLET PO (09:46)
[2019-03-29] MEDS: INSULIN GLARGINE (*BKC) 100 UNITS/ML 40 UNITS SUB-Q (09:46)
[2019-03-29] MEDS: FENOFIBRATE,MICRONIZED 48 MG TABLET PO (09:46)
[2019-03-29] MEDS: PANTOPRAZOLE 40 MG TABLET PO ×2 (09:47→20:46)
[2019-03-29] MEDS: ROSUVASTATIN 5 MG TABLET PO (09:47)
[2019-03-29] MEDS: DEXAMETHASONE 4 MG TABLET PO ×2 (09:47→17:34)
[2019-03-29] MEDS: PAROXETINE 20 MG TABLET PO (09:47)
[2019-03-29 12:03] LABS: Glucose Point of Care 345 (65-105)
[2019-03-29] MEDS: INSULIN ASPART (*BKC) 100 UNITS/ML SUB-Q ×2 (13:01→17:35)
[2019-03-29 14:00] VITALS: BP 126/64; PULSE 73; RESP 18; TEMP 36.6; O2SAT 96
[2019-03-29 17:02] LABS: Glucose Point of Care 305 (65-105)
[2019-03-29 20:46] VITALS: PULSE 73
[2019-03-29] MEDS: NIACIN SA 500 MG TABLET 2000 MG PO (20:46)
[2019-03-29] MEDS: MONTELUKAST SODIUM 10 MG TABLET PO (20:46)
[2019-03-29] MEDS: ACETAMINOPHEN 325 MG TABLET 650 MG PO (20:48)
[2019-03-29 21:28] LABS: Glucose Point of Care 259 (65-105)
[2019-03-29 22:00] VITALS: BP 114/53; PULSE 68; RESP 20; TEMP 36.7; O2SAT 98
[2019-03-30 06:00] VITALS: BP 101/44; PULSE 81; RESP 19; TEMP 36.8; O2SAT 96
[2019-03-30] MEDS: HEPARIN SODIUM 5,000 UNITS/ML VIAL 5000 UNITS SUB-Q ×3 (06:18→20:24)
[2019-03-30] MEDS: DILTIAZEM HCL 30 MG TABLET PO ×3 (06:22→17:38)
[2019-03-30 07:11] LABS: Glucose Point of Care 298 (65-105)
[2019-03-30] MEDS: allopurinoL 100 MG TABLET PO (10:20)
[2019-03-30] MEDS: ASPIRIN 81 MG CHEWABLE TABLET PO (10:20)
[2019-03-30] MEDS: PSYLLIUM POWDER PACKET 1 PACKET PO ×2 (10:20→20:25)
[2019-03-30] MEDS: DEXAMETHASONE 4 MG TABLET PO ×2 (10:21→17:38)
[2019-03-30] MEDS: PAROXETINE 20 MG TABLET PO (10:21)
[2019-03-30] MEDS: FAMOTIDINE 20 MG TABLET PO ×2 (10:21→20:24)
[2019-03-30] MEDS: FENOFIBRATE,MICRONIZED 48 MG TABLET PO (10:21)
[2019-03-30] MEDS: PANTOPRAZOLE 40 MG TABLET PO ×2 (10:22→20:23)
[2019-03-30] MEDS: FUROSEMIDE 20 MG TABLET PO (10:22)
[2019-03-30] MEDS: levETIRAcetam 500 MG TABLET 1500 MG PO ×2 (10:22→20:24)
[2019-03-30] MEDS: ROSUVASTATIN 5 MG TABLET PO (10:22)
[2019-03-30 10:23] VITALS: PULSE 92
[2019-03-30] MEDS: carvediloL 6.25 MG TABLET PO ×2 (10:23→20:23)
[2019-03-30] MEDS: INSULIN GLARGINE (*BKC) 100 UNITS/ML 40 UNITS SUB-Q (10:31)
[2019-03-30] MEDS: INSULIN ASPART (*BKC) 100 UNITS/ML 9 UNITS SUB-Q ×3 (10:31→17:39)
[2019-03-30] MEDS: INSULIN ASPART (*BKC) 100 UNITS/ML SUB-Q ×3 (10:32→17:40)
--- NOTE | 2019-03-30 11:09 | PCOTNOTE ---
Attempted OT session with patient at 10:30, but patient refused, stating he needed to rest. (At every treatment session, the patient frequently and continually states that he is tired and needs to rest and it is an ongoing struggle to get the patient to participate for more than 30 minutes, with ongoing maximum encouragement.) Today, the therapist explained the benefits of therapy and encouraged patient to participate, but patient still refused. Therapist rearranged the patient's schedule to give the patient the requested rest period and returned at 11:00am for the rescheduled treatment. At this time, the CROP ADJUSTER reported the patient had gotten himself back into bed. When approached to begin the rescheduled therapy session, the patient again refused to participate and insisted that he needed to continue resting. Will attempt a third time later this morning.
--- NOTE | 2019-03-30 11:19 | PCDIET ---
Nutrition Follow-Up Complete: Nutrition Diagnosis: Inadequate oral intake related to multiple medical issues, primarily recent SDH, as evidenced by intakes 0-25% and need for supplemental enteral feedings. Nutrition Goal: Intakes improved to >50%, tube feeding tolerance (when given) Goal met. Patient with average intake of 63% since 03/28/19 requiring fewer tube feeding boluses (1 can Jevity 1.5 if <50% of meal consumed). Patient more awake and talkative during visit and feels appetite has improved. Recommend continuing diabetic diet with supplemental tube feedings for intakes <50%. Last recorded weight is 120 kg. Recommend obtaining new weight. Bowel Motility: Last documented bowel movement on 03/26/18. Labs Reviewed: Glu (298) Meds Noted: Dexamethasone, Pepcid, Lasix, Novolog, Lantus, Niacin, Protonix, Metamucil Additional Notes: Head incision well approximated. No pressure sores documented. Recommend adjusting diabetic medications, as medically appropriate, to improve glucose levels. Nutrition Monitoring and Evaluation: Follow up every Tuesday/Tuesday.
--- NOTE | 2019-03-30 11:37 | PCOTNOTE ---
Attempted OT session for the third time this morning with patient, but patient again refused, stating I just need to rest. Therapist explained to patient the benefits and need to work with therapy to improve strength, transfers and independence with ADLs so he can return home, but patient still refused.
[2019-03-30 12:31] LABS: Glucose Point of Care 301 (65-105)
--- NOTE | 2019-03-30 12:55 | WPDNEURORHBP ---
Subjective Date/time seen: 03/30/19 12:55 Interval history: patient does not have any more headaches now and doing better denies any double vision blurred vision or lateralizing focal weakness except he does have evidence of right-sided weakness and subtle but present is speech defect related to subdural hematoma next It seems like patient is improving overall related to dexamethasone therapy no seizures are noted Review of Systems Review of Systems: All systems reviewed & are unremarkable except as noted in HPI and below Functional Status Ambulation Ability Ability to Ambulate 10 Feet: Contact Guard Ability to Ambulate 50 Feet With 2 Turns: Contact Guard Ambulation Assistive Devices: Walker, Wheeled Transfers Ability Ability to Transfer In/Out of Chair: Standby Assistance Exam Const: General: comfortable and no acute distress Eyes: General: appearance normal, both eyes and all related structures Neck: Neck: supple and no JVD Resp: Effort & Inspection: normal respiratory effort Auscultation: clear to auscultation bilaterally Cardio: Rate: regular rate Rhythm: regular rhythm GI: GI Palp: Yes Soft to palpation Auscultation: normal bowel sounds Skin: General skin exam: normal color and no rashes or lesions noted Neuro: Other: improving mental status improving his speech improving right-sided hemiparesis Patient is responsive and to dexamethasone Extrem: General: normal to inspection Objective Data Vital Signs Vital Signs: Vital Signs - 24 hr 03/29/19 14:00 03/29/19 20:46 03/29/19 22:00 Temperature 36.6 C 36.7 C Pulse Rate 73 73 68 Respiratory Rate 18 20 Blood Pressure 126/64 114/53 L Pulse Oximetry 96 98 03/30/19 06:00 03/30/19 10:23 Temperature 36.8 C Pulse Rate 81 92 Respiratory Rate 19 Blood Pressure 101/44 L Pulse Oximetry 96 Intake/Output Intake/Output: Intake & Output 03/27/19 03/28/19 03/29/19 03/30/19 23:59 23:59 23:59 23:59 Intake Total 320 1100 1340 120 Output Total 600 400 Balance 320 500 940 120 Meds/Results Medications: Active Medications Generic Name Dose Route Start Last Admin Trade Name Freq PRN Reason Stop Dose Admin Acetaminophen 650 mg 03/23/19 17:44 03/29/19 20:48 Tylenol Tablet PO 650 mg Q4H PRN Administration Headache Albuterol 2.5 mg 03/28/19 14:38 Albuterol Sulf Neb 2.5mg/0.5ml INHALATION 04/03/19 23:59 Q6HRT PRN Shortness Of Breath Or Wheezing Allopurinol 100 mg 03/24/19 08:00 03/30/19 10:20 Zyloprim PO 100 mg DAILY@0800 MAXINE Administration Aspirin 81 mg 03/24/19 08:00 03/30/19 10:20 Aspirin Chewable PO 81 mg DAILY@0800 MAXINE Administration Carvedilol 6.25 mg 03/23/19 21:00 03/30/19 10:23 Coreg PO 6.25 mg Q12HR MAXINE Administration Dexamethasone 4 mg 03/28/19 12:10 03/30/19 10:21 Dexamethasone Po PO 4 mg BID MAXINE Administration Dextrose 12.5 gm 03/23/19 15:53 Dextrose 50% Syringe IV PUSH PRN PRN Hypoglycemia Protocol Diltiazem HCl 30 mg 03/23/19 18:00 03/30/19 12:52 Cardizem Tab PO 30 mg Q6HR MAXINE Administration Famotidine 20 mg 03/23/19 21:00 03/30/19 10:21 Pepcid PO 20 mg Q12HR MAXINE Administration Fenofibrate 48 mg 03/24/19 09:00 03/30/19 10:21 Tricor PO 48 mg QAM MAXINE Administration Furosemide 20 mg 03/24/19 09:00 03/30/19 10:22 Lasix Tablet PO 20 mg DAILY MAXINE Administration Glucagon 1 mg 03/23/19 15:53 Glucagon For Inj IM PRN PRN Hypoglycemia Protocol Glucose 15 gm 03/23/19 15:53 Glutose 15 PO PRN PRN Hypoglycemia Protocol Heparin Sodium (Porcine) 5,000 units 03/23/19 22:00 03/30/19 06:18 Heparin Sodium SUB-Q 5,000 units Q8HR MAXINE Administration Dextrose 1,000 mls @ 100 mls/hr 03/23/19 15:53 Dextrose 5% 1,000 Ml IVPB PRN PRN Hypoglycemia Protocol Insulin Aspart 9 units 03/24/19 08:00 03/30/19 12:52 Novolog
[2019-03-30 14:00] VITALS: BP 117/56; PULSE 69; RESP 18; TEMP 36.6; O2SAT 95
[2019-03-30 17:22] LABS: Glucose Point of Care 289 (65-105)
[2019-03-30 20:23] VITALS: PULSE 72
[2019-03-30] MEDS: MONTELUKAST SODIUM 10 MG TABLET PO (20:23)
[2019-03-30] MEDS: NIACIN SA 500 MG TABLET 2000 MG PO (20:23)
[2019-03-30 20:47] LABS: Glucose Point of Care 280 (65-105)
[2019-03-30 22:00] VITALS: BP 102/36; PULSE 63; RESP 20; TEMP 36.8; O2SAT 95
[2019-03-31] MEDS: DILTIAZEM HCL 30 MG TABLET PO ×4 (00:09→17:29)
[2019-03-31 04:51] LABS: Basophils Percent Auto 0.1 % (0.2-1.2); Hematocrit 35.4 % (42.0-52.0); Hemoglobin 10.9 g/dL (14.0-18.0); Immature Granulocyte Absolute 0.14 K/mm3 (0.00-0.031); Immature Granulocyte Percent A 0.8 % (0-0.5); Lymphocytes Absolute Auto 0.87 K/mm3 (0.9-3.2); Lymphocytes Percent Auto 4.7 % (18.3-44.2); Mean Corpuscular HGB Conc 30.8 g/dl (32-36); Mean Corpuscular Hemoglobin 28.2 pg (26-34); Mean Corpuscular Volume 91.5 fl (80-100); Mean Platelet Volume 10.3 fl (7.4-10.4); Monocytes Absolute Auto 0.4 K/mm3 (0.1-0.6); Monocytes Percent Auto 2.1 % (2.6-8.5); Neutrophils Absolute Auto 17.1 K/mm3 (1.3-6.7); Neutrophils Percent Auto 92.3 % (45.5-73.1); Platelet Count Result 321 k/mm3 (150-375); Red Blood Count 3.87 M/mm3 (4.6-6.20); White Blood Count 18.5 K/mm3 (4.5-10.0)
[2019-03-31 05:26] LABS: Macrocytosis 1+ (NORMAL); Microcytosis 1+ (NORMAL); Platelet Estimate Adequate (Adequate)
[2019-03-31 06:00] VITALS: BP 124/52; PULSE 66; RESP 20; TEMP 36.6; O2SAT 97
[2019-03-31] MEDS: HEPARIN SODIUM 5,000 UNITS/ML VIAL 5000 UNITS SUB-Q ×3 (06:09→20:05)
[2019-03-31 06:36] LABS: Glucose Point of Care 290 (65-105)
[2019-03-31 07:04] LABS: Blood Urea Nitrogen 42 mg/dL (9-20); Calcium 9.4 mg/dL (8.4-10.2); Carbon Dioxide 25 mmol/L (22-30); Chloride 96 mmol/L (98-107); Estimated CRCL calculation 48 ml/min; Estimated Glomerular Filt Rate 42; Glucose 303 mg/dL (75-110); Potassium 4.6 mmol/L (3.4-5.0); Sodium 130 mmol/L (137-145)
[2019-03-31 09:10] VITALS: PULSE 66
[2019-03-31] MEDS: QUEtiapine FUMARATE 25 MG TABLET PO (09:10)
[2019-03-31] MEDS: levETIRAcetam 500 MG TABLET 1500 MG PO ×2 (09:10→20:05)
[2019-03-31] MEDS: allopurinoL 100 MG TABLET PO (09:10)
[2019-03-31] MEDS: FAMOTIDINE 20 MG TABLET PO ×2 (09:10→20:06)
[2019-03-31] MEDS: DEXAMETHASONE 4 MG TABLET PO ×2 (09:10→17:29)
[2019-03-31] MEDS: FENOFIBRATE,MICRONIZED 48 MG TABLET PO (09:10)
[2019-03-31] MEDS: carvediloL 6.25 MG TABLET PO ×2 (09:10→20:06)
[2019-03-31] MEDS: ASPIRIN 81 MG CHEWABLE TABLET PO (09:10)
[2019-03-31] MEDS: PSYLLIUM POWDER PACKET 1 PACKET PO ×2 (09:11→20:07)
[2019-03-31] MEDS: FUROSEMIDE 20 MG TABLET PO (09:11)
[2019-03-31] MEDS: PANTOPRAZOLE 40 MG TABLET PO ×2 (09:11→20:06)
[2019-03-31] MEDS: PAROXETINE 20 MG TABLET PO (09:11)
[2019-03-31] MEDS: ROSUVASTATIN 5 MG TABLET PO (09:12)
[2019-03-31] MEDS: INSULIN ASPART (*BKC) 100 UNITS/ML SUB-Q ×3 (09:14→17:30)
[2019-03-31] MEDS: INSULIN ASPART (*BKC) 100 UNITS/ML 9 UNITS SUB-Q ×3 (09:14→17:29)
[2019-03-31] MEDS: INSULIN GLARGINE (*BKC) 100 UNITS/ML 40 UNITS SUB-Q (09:15)
[2019-03-31 12:04] LABS: Glucose Point of Care 362 (65-105)
[2019-03-31 14:00] VITALS: BP 138/58; PULSE 84; RESP 20; TEMP 36.4; O2SAT 100
[2019-03-31 17:14] LABS: Glucose Point of Care 338 (65-105)
[2019-03-31] MEDS: NIACIN SA 500 MG TABLET 2000 MG PO (20:05)
[2019-03-31 20:06] VITALS: PULSE 88
[2019-03-31] MEDS: MONTELUKAST SODIUM 10 MG TABLET PO (20:06)
[2019-03-31 20:53] LABS: Glucose Point of Care 321 (65-105)
[2019-03-31 22:00] VITALS: BP 132/54; PULSE 84; RESP 18; TEMP 36.9; O2SAT 98
[2019-04-01] MEDS: DILTIAZEM HCL 30 MG TABLET PO ×4 (00:03→17:20)
[2019-04-01] MEDS: HEPARIN SODIUM 5,000 UNITS/ML VIAL 5000 UNITS SUB-Q ×3 (05:54→21:45)
[2019-04-01 06:00] VITALS: BP 142/65; PULSE 65; RESP 18; TEMP 36.8; O2SAT 98
[2019-04-01 06:23] LABS: Glucose Point of Care 291 (65-105)
[2019-04-01 08:00] VITALS: PULSE 65; RESP 18; O2SAT 98
[2019-04-01] MEDS: FAMOTIDINE 20 MG TABLET PO ×2 (08:59→21:44)
[2019-04-01] MEDS: ROSUVASTATIN 5 MG TABLET PO (08:59)
[2019-04-01 09:00] VITALS: PULSE 65
[2019-04-01] MEDS: allopurinoL 100 MG TABLET PO (09:00)
[2019-04-01] MEDS: DEXAMETHASONE 4 MG TABLET PO ×2 (09:00→17:20)
[2019-04-01] MEDS: carvediloL 6.25 MG TABLET PO ×2 (09:00→21:42)
[2019-04-01] MEDS: FUROSEMIDE 20 MG TABLET PO (09:00)
[2019-04-01] MEDS: levETIRAcetam 500 MG TABLET 1500 MG PO ×2 (09:00→21:42)
[2019-04-01] MEDS: FENOFIBRATE,MICRONIZED 48 MG TABLET PO (09:00)
[2019-04-01] MEDS: PANTOPRAZOLE 40 MG TABLET PO ×2 (09:00→21:44)
[2019-04-01] MEDS: PSYLLIUM POWDER PACKET 1 PACKET PO ×2 (09:01→21:45)
[2019-04-01] MEDS: ASPIRIN 81 MG CHEWABLE TABLET PO (09:01)
[2019-04-01] MEDS: PAROXETINE 20 MG TABLET PO (09:01)
[2019-04-01] MEDS: INSULIN GLARGINE (*BKC) 100 UNITS/ML 40 UNITS SUB-Q (09:02)
[2019-04-01] MEDS: INSULIN ASPART (*BKC) 100 UNITS/ML 9 UNITS SUB-Q ×3 (09:03→17:22)
[2019-04-01] MEDS: INSULIN ASPART (*BKC) 100 UNITS/ML SUB-Q ×3 (09:03→17:22)
--- NOTE | 2019-04-01 11:38 | PCOTNOTE ---
Attempted to see patient this am, however patient refused. Family arrived upon attempting to encourage patient. Patient's daughter and encouraged patient to participate, however patient refused and became increasingly agitated. Will try again after lunch.
[2019-04-01 11:59] LABS: Glucose Point of Care 318 (65-105)
--- NOTE | 2019-04-01 12:28 | WPDNEURORHBP ---
Subjective Date/time seen: 04/01/19 12:28 feels better no specific complaints Functional Status Ambulation Ability Ability to Ambulate 10 Feet: Contact Guard Ability to Ambulate 50 Feet With 2 Turns: Contact Guard Ambulation Assistive Devices: Walker, Wheeled Transfers Ability Ability to Transfer In/Out of Chair: Contact Guard Exam Const: General: comfortable and no acute distress Eyes: General: appearance normal, both eyes and all related structures Neck: Neck: full ROM Resp: Effort & Inspection: normal respiratory effort and able to speak in complete sentences Auscultation: clear to auscultation bilaterally Cardio: Rate: regular rate Rhythm: regular rhythm GI: Auscultation: normal bowel sounds Skin: General skin exam: no rashes or lesions noted Neuro: General: patient oriented x3 Cranial nerves: Yes Equal, round and reactive pupils present, Yes Nystagmus not present and Yes Midline tongue present Gait exam (Neuro): Normal gait present (hemiparetic) Objective Data Vital Signs Vital Signs: Vital Signs - 24 hr 03/31/19 14:00 03/31/19 20:06 03/31/19 22:00 Temperature 36.4 C 36.9 C Pulse Rate 84 88 84 Respiratory Rate 20 18 Blood Pressure 138/58 L 132/54 L Pulse Oximetry 100 98 04/01/19 06:00 04/01/19 08:00 04/01/19 09:00 Temperature 36.8 C Pulse Rate 65 65 65 Respiratory Rate 18 18 Blood Pressure 142/65 H Pulse Oximetry 98 98 Intake/Output Intake/Output: Intake & Output 03/29/19 03/30/19 03/31/19 04/01/19 23:59 23:59 23:59 23:59 Intake Total 1340 1100 1390 240 Output Total 400 450 500 Balance 940 650 890 240 Meds/Results Medications: Active Medications Generic Name Dose Route Start Last Admin Trade Name Freq PRN Reason Stop Dose Admin Acetaminophen 650 mg 03/23/19 17:44 03/29/19 20:48 Tylenol Tablet PO 650 mg Q4H PRN Administration Headache Albuterol 2.5 mg 03/28/19 14:38 Albuterol Sulf Neb 2.5mg/0.5ml INHALATION 04/03/19 23:59 Q6HRT PRN Shortness Of Breath Or Wheezing Allopurinol 100 mg 03/24/19 08:00 04/01/19 09:00 Zyloprim PO 100 mg DAILY@0800 MAXINE Administration Aspirin 81 mg 03/24/19 08:00 04/01/19 09:01 Aspirin Chewable PO 81 mg DAILY@0800 MAXINE Administration Carvedilol 6.25 mg 03/23/19 21:00 04/01/19 09:00 Coreg PO 6.25 mg Q12HR MAXINE Administration Dexamethasone 4 mg 03/28/19 12:10 04/01/19 09:00 Dexamethasone Po PO 4 mg BID MAXINE Administration Dextrose 12.5 gm 03/23/19 15:53 Dextrose 50% Syringe IV PUSH PRN PRN Hypoglycemia Protocol Diltiazem HCl 30 mg 03/23/19 18:00 04/01/19 05:54 Cardizem Tab PO 30 mg Q6HR MAXINE Administration Famotidine 20 mg 03/23/19 21:00 04/01/19 08:59 Pepcid PO 20 mg Q12HR MAXINE Administration Fenofibrate 48 mg 03/24/19 09:00 04/01/19 09:00 Tricor PO 48 mg QAM MAXINE Administration Furosemide 20 mg 03/24/19 09:00 04/01/19 09:00 Lasix Tablet PO 20 mg DAILY MAXINE Administration Glucagon 1 mg 03/23/19 15:53 Glucagon For Inj IM PRN PRN Hypoglycemia Protocol Glucose 15 gm 03/23/19 15:53 Glutose 15 PO PRN PRN Hypoglycemia Protocol Heparin Sodium (Porcine) 5,000 units 03/23/19 22:00 04/01/19 05:54 Heparin Sodium SUB-Q 5,000 units Q8HR MAXINE Administration Dextrose 1,000 mls @ 100 mls/hr 03/23/19 15:53 Dextrose 5% 1,000 Ml IVPB PRN PRN Hypoglycemia Protocol Insulin Aspart 9 units 03/24/19 08:00 04/01/19 09:03 Novolog SUB-Q 9 units TIDWM MAXINE Administration Insulin Aspart 2 - 5 units 03/30/19 08:00 04/01/19 09:03 Novolog SUB-Q 3 units TIDWM MAXINE Administration Protocol Insulin Glargine 40 units 03/24/19 09:00 04/01/19 09:02 Lantus SUB-Q 40 units QAM MAXINE Administration Ipratropium Center 0.5 mg 03/23/19 17:56 Atrovent Neb INHALATION Q4HRT PRN Wheezing Levetiracetam 1,50
--- NOTE | 2019-04-01 13:27 | PCPTNOTE ---
Attempted to see patient at 1300 for Physical Therapy; patient refused at this time stating I'll do it tomorrow . Will attempt again later this afternoon.
--- NOTE | 2019-04-01 13:37 | PCOTNOTE ---
Attempted to see patient this pm, however patient refused. Family at bedside encouraged patient to participate however patient kept repeating, No. Leave me alone. I'm tired. I want to rest. I'll do it tomorrow. Pt did not receive any OT minutes this date for this reason.
[2019-04-01 14:00] VITALS: BP 138/68; PULSE 76; RESP 20; TEMP 36.6; O2SAT 100
--- NOTE | 2019-04-01 14:16 | PCPTNOTE ---
Patient refused Physical Therapy treatment at 1415. Full therapy minutes not met this date.
[2019-04-01 17:05] LABS: Glucose Point of Care 295 (65-105)
[2019-04-01 21:42] VITALS: PULSE 66
[2019-04-01] MEDS: MONTELUKAST SODIUM 10 MG TABLET PO (21:44)
[2019-04-01] MEDS: NIACIN SA 500 MG TABLET 2000 MG PO (21:45)
[2019-04-01 22:00] VITALS: BP 111/67; PULSE 62; RESP 19; TEMP 36.3; O2SAT 95
[2019-04-01 22:15] LABS: Glucose Point of Care 313 (65-105)
[2019-04-02] MEDS: DILTIAZEM HCL 30 MG TABLET PO ×4 (00:18→17:48)
[2019-04-02 06:00] VITALS: BP 114/68; PULSE 76; RESP 18; TEMP 36.9; O2SAT 96
[2019-04-02] MEDS: HEPARIN SODIUM 5,000 UNITS/ML VIAL 5000 UNITS SUB-Q ×3 (06:04→21:14)
[2019-04-02 09:28] VITALS: PULSE 76
[2019-04-02] MEDS: levETIRAcetam 500 MG TABLET 1500 MG PO ×2 (09:28→21:13)
[2019-04-02] MEDS: carvediloL 6.25 MG TABLET PO ×2 (09:28→21:13)
[2019-04-02] MEDS: PAROXETINE 20 MG TABLET PO (09:28)
[2019-04-02] MEDS: DEXAMETHASONE 4 MG TABLET PO ×2 (09:28→17:48)
[2019-04-02] MEDS: ASPIRIN 81 MG CHEWABLE TABLET PO (09:29)
[2019-04-02] MEDS: FAMOTIDINE 20 MG TABLET PO ×2 (09:29→21:14)
[2019-04-02] MEDS: FENOFIBRATE,MICRONIZED 48 MG TABLET PO (09:29)
[2019-04-02] MEDS: PANTOPRAZOLE 40 MG TABLET PO ×2 (09:30→21:14)
[2019-04-02] MEDS: allopurinoL 100 MG TABLET PO (09:30)
[2019-04-02] MEDS: FUROSEMIDE 20 MG TABLET PO (09:30)
[2019-04-02] MEDS: ROSUVASTATIN 5 MG TABLET PO (09:31)
[2019-04-02] MEDS: INSULIN GLARGINE (*BKC) 100 UNITS/ML 45 UNITS SUB-Q (09:31)
[2019-04-02] MEDS: PSYLLIUM POWDER PACKET 1 PACKET PO ×2 (09:31→21:14)
[2019-04-02] MEDS: INSULIN ASPART (*BKC) 100 UNITS/ML 9 UNITS SUB-Q ×3 (09:32→17:46)
[2019-04-02] MEDS: INSULIN ASPART (*BKC) 100 UNITS/ML SUB-Q ×3 (09:33→17:47)
[2019-04-02 12:13] LABS: Glucose Point of Care 348 (65-105)
--- NOTE | 2019-04-02 12:24 | PCPTNOTE ---
Patient refused treatment this session due to fatigue. Attempted to see patient at 09:30, however patient refused to participate. Despite moderate cues, patient continued to refused and would not open eyes. Patient states that he just wants to rest. Will attempt to see patient in Pm to complete therapy.
[2019-04-02 12:35] LABS: Glucose Point of Care 378 (65-105)
[2019-04-02 14:00] VITALS: BP 105/54; PULSE 56; RESP 17; TEMP 36.4; O2SAT 99
--- NOTE | 2019-04-02 14:46 | PCOTNOTE ---
OT treatment attempted, patient adamantly refuses all therapy at this time. Will continue to attempt.
[2019-04-02 17:27] LABS: Glucose Point of Care 370 (65-105)
[2019-04-02 21:13] VITALS: PULSE 76
[2019-04-02] MEDS: MONTELUKAST SODIUM 10 MG TABLET PO (21:13)
[2019-04-02] MEDS: NIACIN SA 500 MG TABLET 2000 MG PO (21:13)
[2019-04-02 21:25] LABS: Glucose Point of Care > 500 (65-105)
[2019-04-02 21:51] LABS: Glucose 331 mg/dL (75-110)
[2019-04-02 22:00] VITALS: BP 120/48; PULSE 70; RESP 16; TEMP 36.4; O2SAT 97
[2019-04-03] MEDS: DILTIAZEM HCL 30 MG TABLET PO ×4 (00:10→18:08)
[2019-04-03 06:00] VITALS: BP 125/81; PULSE 64; RESP 18; TEMP 36.9; O2SAT 97
[2019-04-03] MEDS: HEPARIN SODIUM 5,000 UNITS/ML VIAL 5000 UNITS SUB-Q ×3 (06:19→20:20)
[2019-04-03 07:08] LABS: Glucose Point of Care 363 (65-105)
[2019-04-03] MEDS: ASPIRIN 81 MG CHEWABLE TABLET PO (10:19)
[2019-04-03] MEDS: allopurinoL 100 MG TABLET PO (10:19)
[2019-04-03 10:20] VITALS: PULSE 64
[2019-04-03] MEDS: carvediloL 6.25 MG TABLET PO ×2 (10:20→20:18)
[2019-04-03] MEDS: FUROSEMIDE 20 MG TABLET PO (10:21)
[2019-04-03] MEDS: DEXAMETHASONE 4 MG TABLET PO (10:21)
[2019-04-03] MEDS: FENOFIBRATE,MICRONIZED 48 MG TABLET PO (10:21)
[2019-04-03] MEDS: FAMOTIDINE 20 MG TABLET PO ×2 (10:21→20:21)
[2019-04-03] MEDS: PAROXETINE 20 MG TABLET PO (10:22)
[2019-04-03] MEDS: PSYLLIUM POWDER PACKET 1 PACKET PO ×2 (10:22→20:20)
[2019-04-03] MEDS: ROSUVASTATIN 5 MG TABLET PO (10:22)
[2019-04-03] MEDS: PANTOPRAZOLE 40 MG TABLET PO ×2 (10:22→20:17)
[2019-04-03] MEDS: levETIRAcetam 500 MG TABLET 1500 MG PO ×2 (10:22→20:17)
[2019-04-03] MEDS: INSULIN GLARGINE (*BKC) 100 UNITS/ML 45 UNITS SUB-Q (10:23)
[2019-04-03] MEDS: INSULIN ASPART (*BKC) 100 UNITS/ML 9 UNITS SUB-Q ×3 (10:24→18:09)
[2019-04-03] MEDS: INSULIN ASPART (*BKC) 100 UNITS/ML SUB-Q ×3 (10:25→18:09)
[2019-04-03 12:10] LABS: Glucose Point of Care 357 (65-105)
--- NOTE | 2019-04-03 13:08 | PCDIET ---
Nutrition Follow-Up Complete: Nutrition Diagnosis: Inadequate oral intake related to multiple medical issues, primarily recent SDH, as evidenced by intakes 0-25% and need for supplemental enteral feedings. Nutrition Goals: Intakes improved to >50%, tube feeding tolerance (when given) Goal met. Patient consuming 70-100% of most meals and has not been requiring bolus feedings recently. Last recorded weight is 120 kg. Recommend obtaining new weight. Bowel Motility: Last documented bowel movement 03/31/19. Labs Reviewed: Glu (298) Meds Noted: Dexamethasone, Pepcid, Lasix, Novolog, Lantus, Niacin, Protonix, Metamucil Additional Notes: Head incision well approximated; no reported pressure sores. Will continue to monitor with same goals. Nutrition Monitoring and Evaluation: Follow up every Tuesday/Tuesday.
--- NOTE | 2019-04-03 13:37 | WPDNEURORHBP ---
Subjective Date/time seen: 04/03/19 13:37 Interval history: patient again had refused to come to team conference saying that he is tired and fatigued and has decreased endurance otherwise remains alert following commands is speech and language functions are much better and is right-sided weakness is much better he has good days and bad days and walks fairly decently of course with the assistance. He is on dexamethasone and his blood sugars have been running high so we will cut back on the dexamethasone and next few days take him off Review of Systems Review of Systems: All systems reviewed & are unremarkable except as noted in HPI and below Functional Status Ambulation Ability Ability to Ambulate 10 Feet: Contact Guard Ability to Ambulate 50 Feet With 2 Turns: Contact Guard Ambulation Assistive Devices: Walker, Wheeled Transfers Ability Ability to Transfer In/Out of Chair: Standby Assistance Exam Const: General: comfortable and no acute distress HENMT: Other: normal Eyes: General: appearance normal, both eyes and all related structures Neck: Neck: supple and no JVD Resp: Effort & Inspection: normal respiratory effort Auscultation: clear to auscultation bilaterally Cardio: Rate: regular rate Rhythm: regular rhythm GI: GI Palp: Yes Soft to palpation Auscultation: normal bowel sounds Skin: General skin exam: normal color and no rashes or lesions noted Neuro: Other: much improved mental status examination and cranial examination and right-sided weakness however the patient has good days and bad days and not much motivated to engage in therapy and at times even received freezing it Extrem: General: normal to inspection Objective Data Vital Signs Vital Signs: Vital Signs - 24 hr 04/02/19 14:00 04/02/19 21:13 04/02/19 22:00 Temperature 36.4 C L 36.4 C L Pulse Rate 56 L 76 70 Respiratory Rate 17 16 Blood Pressure 105/54 L 120/48 L Pulse Oximetry 99 97 04/03/19 06:00 04/03/19 10:20 Temperature 36.9 C Pulse Rate 64 64 Respiratory Rate 18 Blood Pressure 125/81 Pulse Oximetry 97 Intake/Output Intake/Output: Intake & Output 03/31/19 04/01/19 04/02/19 04/03/19 23:59 23:59 23:59 23:59 Intake Total 1390 720 720 Output Total 500 Balance 890 720 720 Meds/Results Medications: Active Medications Generic Name Dose Route Start Last Admin Trade Name Freq PRN Reason Stop Dose Admin Acetaminophen 650 mg 03/23/19 17:44 03/29/19 20:48 Tylenol Tablet PO 650 mg Q4H PRN Administration Headache Albuterol 2.5 mg 03/28/19 14:38 Albuterol Sulf Neb 2.5mg/0.5ml INHALATION 04/03/19 23:59 Q6HRT PRN Shortness Of Breath Or Wheezing Allopurinol 100 mg 03/24/19 08:00 04/03/19 10:19 Zyloprim PO 100 mg DAILY@0800 MAXINE Administration Aspirin 81 mg 03/24/19 08:00 04/03/19 10:19 Aspirin Chewable PO 81 mg DAILY@0800 [facility] Administration Carvedilol 6.25 mg 03/23/19 21:00 04/03/19 10:20 Coreg PO 6.25 mg Q12HR MAXINE Administration Dexamethasone 2 mg 04/03/19 17:00 Dexamethasone Po PO BID [facility] Dextrose 12.5 gm 03/23/19 15:53 Dextrose 50% Syringe IV PUSH PRN PRN Hypoglycemia Protocol Diltiazem HCl 30 mg 03/23/19 18:00 04/03/19 13:14 Cardizem Tab PO 30 mg Q6HR MAXINE Administration Famotidine 20 mg 03/23/19 21:00 04/03/19 10:21 Pepcid PO 20 mg Q12HR MAXINE Administration Fenofibrate 48 mg 03/24/19 09:00 04/03/19 10:21 Tricor PO 48 mg QAM MAXINE Administration Furosemide 20 mg 03/24/19 09:00 04/03/19 10:21 Lasix Tablet PO 20 mg DAILY MAXINE Administration Glucagon 1 mg 03/23/19 15:53 Glucagon For Inj IM PRN PRN Hypoglycemia Protocol Glucose 15 gm 03/23/19 15:53 Glutose 15 PO PRN PRN Hypoglycemia Protocol Heparin Sodium (Porcine) 5,000 units 03/23/19 22:00 04/03/19 13:14 Heparin Sodium SUB-Q 5,000 units Q8HR [facility] Administr
[2019-04-03 14:00] VITALS: BP 108/58; PULSE 90; RESP 20; TEMP 36.9; O2SAT 96
[2019-04-03 17:30] LABS: Glucose Point of Care 377 (65-105)
[2019-04-03] MEDS: DEXAMETHASONE 2 MG TABLET PO (18:09)
[2019-04-03] MEDS: ACETAMINOPHEN 325 MG TABLET 650 MG PO (20:14)
[2019-04-03] MEDS: NIACIN SA 500 MG TABLET 2000 MG PO (20:15)
[2019-04-03 20:18] VITALS: PULSE 88
[2019-04-03] MEDS: MONTELUKAST SODIUM 10 MG TABLET PO (20:19)
[2019-04-03 21:35] LABS: Glucose Point of Care 288 (65-105)
[2019-04-03 22:00] VITALS: BP 103/56; PULSE 64; RESP 19; TEMP 36.6; O2SAT 97
[2019-04-04] MEDS: DILTIAZEM HCL 30 MG TABLET PO ×5 (00:24→23:51)
[2019-04-04 06:00] VITALS: BP 94/51; PULSE 67; RESP 19; TEMP 36.6; O2SAT 96
[2019-04-04] MEDS: HEPARIN SODIUM 5,000 UNITS/ML VIAL 5000 UNITS SUB-Q ×3 (06:01→21:04)
[2019-04-04 06:52] LABS: Glucose Point of Care 280 (65-105)
[2019-04-04] MEDS: ASPIRIN 81 MG CHEWABLE TABLET PO (09:44)
[2019-04-04] MEDS: allopurinoL 100 MG TABLET PO (09:44)
[2019-04-04] MEDS: INSULIN ASPART (*BKC) 100 UNITS/ML 9 UNITS SUB-Q ×3 (09:44→18:18)
[2019-04-04] MEDS: INSULIN ASPART (*BKC) 100 UNITS/ML SUB-Q ×3 (09:45→18:20)
[2019-04-04] MEDS: PANTOPRAZOLE 40 MG TABLET PO ×2 (09:47→21:01)
[2019-04-04] MEDS: FAMOTIDINE 20 MG TABLET PO ×2 (09:47→21:01)
[2019-04-04] MEDS: DEXAMETHASONE 2 MG TABLET PO ×2 (09:47→18:18)
[2019-04-04] MEDS: ROSUVASTATIN 5 MG TABLET PO (09:47)
[2019-04-04] MEDS: PSYLLIUM POWDER PACKET 1 PACKET PO ×2 (09:47→21:04)
[2019-04-04] MEDS: PAROXETINE 20 MG TABLET PO (09:47)
[2019-04-04] MEDS: FENOFIBRATE,MICRONIZED 48 MG TABLET PO (09:48)
[2019-04-04] MEDS: FUROSEMIDE 20 MG TABLET PO (09:48)
[2019-04-04] MEDS: levETIRAcetam 500 MG TABLET 1500 MG PO ×2 (09:48→21:01)
[2019-04-04] MEDS: INSULIN GLARGINE (*BKC) 100 UNITS/ML 45 UNITS SUB-Q (09:49)
[2019-04-04 09:54] VITALS: PULSE 67
[2019-04-04] MEDS: carvediloL 6.25 MG TABLET PO ×2 (09:54→21:00)
--- NOTE | 2019-04-04 10:46 | PCOTNOTE ---
Patient refused treatment this session due to being tired. Therapist explained benefits of therapy and patient refused all ADLs, transfers, functional activities and exercises.]
--- NOTE | 2019-04-04 11:22 | PCSTNOTE ---
Two attempts made to see patient at 10:00 and 11:15. Pt refused both attempts, stating he did not sleep well last night and needed to rest.
--- NOTE | 2019-04-04 11:52 | PCPTNOTE ---
Attempted Therapy session at 9:00am and again 11:40am both times Pt refused. Pt states I am not doing anything today. I don't want to do anything. I just feel terrible. Therapist reassured Pt and explained the importance of getting up out of bed which can improve how one feels. Pt continued to decline treatment.
--- NOTE | 2019-04-04 12:43 | PCSTNOTE ---
Third attempt made to see patient at 12:30. Family present and, along with this therapist, provided verbal encouragement. However, patient continued to decline to participate, stating he needed to rest.
[2019-04-04 12:51] LABS: Glucose Point of Care 353 (65-105)
--- NOTE | 2019-04-04 13:21 | PCPTNOTE ---
Patient refused treatment this session, with daughter and spouse present. PT, RN and family attempted to get patient to participate for family teaching. The continued to adamantly refuse any treatment or training. Therese Schwarz PT
--- NOTE | 2019-04-04 13:56 | PCOTNOTE ---
Attempted OT session with patient at 13:30, but patient refused treatment again this session, stating he needs to rest and patient has been in bed all day. Family present and, along with this therapist, provided verbal encouragement. However, patient continued to decline to participate, stating he needed to rest.
[2019-04-04 14:00] VITALS: BP 125/57; PULSE 68; RESP 18; TEMP 36.2; O2SAT 93
--- NOTE | 2019-04-04 14:08 | PCPTNOTE ---
Attempted Therapy again. Pt continues refuses. Reminded Pt of the importance of therapy, he continues to refuse.
--- NOTE | 2019-04-04 14:08 | WPDNEURORHBP ---
Subjective Date/time seen: 04/04/19 14:08 Interval history: patient is essentially refusing to engage in physical therapy and occupational therapy which has been fluctuating since he came to us and has been discussed with the family members, he is able to eat fairly well so no PEG tube feeding is being given family training was in progress when I examined this patient he denies any specific new complaints and tries not to be disturbed or bother Review of Systems Review of Systems: All systems reviewed & are unremarkable except as noted in HPI and below Functional Status Ambulation Ability Ability to Ambulate 10 Feet: Contact Guard Ability to Ambulate 50 Feet With 2 Turns: Contact Guard Ambulation Assistive Devices: Walker, Wheeled Transfers Ability Ability to Transfer In/Out of Chair: Standby Assistance Exam Const: General: comfortable and no acute distress HENMT: General nose exam: Normal nares present Mouth: Yes moist mucous membranes Eyes: General: appearance normal, both eyes and all related structures Neck: Neck: supple and no JVD Resp: Effort & Inspection: normal respiratory effort Auscultation: clear to auscultation bilaterally Cardio: Rate: regular rate Rhythm: regular rhythm GI: GI Palp: Yes Soft to palpation Auscultation: normal bowel sounds Other: the PEG tube site is clean and healthy Skin: General skin exam: normal color and no rashes or lesions noted Neuro: Other: patient is able to walk with assistance however does not engage in therapy much his generalized weakness fluctuates good on good days and not so good on bad days Extrem: General: normal to inspection Objective Data Vital Signs Vital Signs: Vital Signs - 24 hr 04/03/19 20:18 04/03/19 22:00 04/04/19 06:00 Temperature 36.6 C 36.6 C Pulse Rate 88 64 67 Respiratory Rate 19 19 Blood Pressure 103/56 L 94/51 L Pulse Oximetry 97 96 04/04/19 09:54 Temperature Pulse Rate 67 Respiratory Rate Blood Pressure Pulse Oximetry Intake/Output Intake/Output: Intake & Output 04/01/19 04/02/19 04/03/19 04/04/19 23:59 23:59 23:59 23:59 Intake Total 720 720 120 Balance 720 720 120 Meds/Results Medications: Active Medications Generic Name Dose Route Start Last Admin Trade Name Freq PRN Reason Stop Dose Admin Acetaminophen 650 mg 03/23/19 17:44 04/03/19 20:14 Tylenol Tablet PO 650 mg Q4H PRN Administration Headache Allopurinol 100 mg 03/24/19 08:00 04/04/19 09:44 Zyloprim PO 100 mg DAILY@0800 MAXINE Administration Aspirin 81 mg 03/24/19 08:00 04/04/19 09:44 Aspirin Chewable PO 81 mg DAILY@0800 MAXINE Administration Carvedilol 6.25 mg 03/23/19 21:00 04/04/19 09:54 Coreg PO 6.25 mg Q12HR MAXINE Administration Dexamethasone 2 mg 04/03/19 17:00 04/04/19 09:47 Dexamethasone Po PO 2 mg BID MAXINE Administration Dextrose 12.5 gm 03/23/19 15:53 Dextrose 50% Syringe IV PUSH PRN PRN Hypoglycemia Protocol Diltiazem HCl 30 mg 03/23/19 18:00 04/04/19 13:09 Cardizem Tab PO 30 mg Q6HR MAXINE Administration Famotidine 20 mg 03/23/19 21:00 04/04/19 09:47 Pepcid PO 20 mg Q12HR MAXINE Administration Fenofibrate 48 mg 03/24/19 09:00 04/04/19 09:48 Tricor PO 48 mg QAM MAXINE Administration Furosemide 20 mg 03/24/19 09:00 04/04/19 09:48 Lasix Tablet PO 20 mg DAILY MAXINE Administration Glucagon 1 mg 03/23/19 15:53 Glucagon For Inj IM PRN PRN Hypoglycemia Protocol Glucose 15 gm 03/23/19 15:53 Glutose 15 PO PRN PRN Hypoglycemia Protocol Heparin Sodium (Porcine) 5,000 units 03/23/19 22:00 04/04/19 06:01 Heparin Sodium SUB-Q 5,000 units Q8HR MAXINE Administration Dextrose 1,000 mls @ 100 mls/hr 03/23/19 15:53 Dextrose 5% 1,000 Ml IVPB PRN PRN Hypoglycemia Protocol Insulin Aspart 9 units 03/24/19 08:00 04/04/19 13:07 Novolog SUB-Q 9 units TI
--- NOTE | 2019-04-04 14:44 | PCPTNOTE ---
Venkatesh Menard was evaluated for a 04/04/19 by this physical therapist. The wheeled walker will resolve patient's mobility limitations and will be used for ADL's within the home. The patient can safely use the wheeled walker, with family standby assist. ?The wheeled walker will resolve the patient?s mobility deficits, including ambulation on level surfaces in his home, safe mobility in the restroom for ADL's and toileting. Therese Schwarz PT
[2019-04-04 17:17] LABS: Glucose Point of Care 359 (65-105)
[2019-04-04 21:00] VITALS: PULSE 68
[2019-04-04] MEDS: MONTELUKAST SODIUM 10 MG TABLET PO (21:01)
[2019-04-04] MEDS: NIACIN SA 500 MG TABLET 2000 MG PO (21:02)
[2019-04-04 21:05] LABS: Glucose Point of Care 330 (65-105)
[2019-04-04 22:00] VITALS: BP 109/64; PULSE 88; RESP 19; TEMP 36.4; O2SAT 96
[2019-04-05] VITALS (7 sets, daily range): BP systolic 103–112; BP diastolic 63–64; PULSE 62–86; RESP 16–19; TEMP 36.2–36.6; O2SAT 95–98
[2019-04-05] MEDS: DILTIAZEM HCL 30 MG TABLET PO ×3 (06:32→18:08)
[2019-04-05] MEDS: HEPARIN SODIUM 5,000 UNITS/ML VIAL 5000 UNITS SUB-Q ×3 (06:32→21:14)
[2019-04-05 06:47] LABS: Glucose Point of Care 318 (65-105)
[2019-04-05] MEDS: FUROSEMIDE 20 MG TABLET PO (09:06)
[2019-04-05] MEDS: carvediloL 6.25 MG TABLET PO ×2 (09:06→21:14)
[2019-04-05] MEDS: FAMOTIDINE 20 MG TABLET PO ×2 (09:06→21:17)
[2019-04-05] MEDS: ASPIRIN 81 MG CHEWABLE TABLET PO (09:06)
[2019-04-05] MEDS: ROSUVASTATIN 5 MG TABLET PO (09:07)
[2019-04-05] MEDS: PANTOPRAZOLE 40 MG TABLET PO ×2 (09:07→21:15)
[2019-04-05] MEDS: PSYLLIUM POWDER PACKET 1 PACKET PO ×2 (09:07→21:17)
[2019-04-05] MEDS: PAROXETINE 20 MG TABLET PO (09:07)
[2019-04-05] MEDS: allopurinoL 100 MG TABLET PO (09:07)
[2019-04-05] MEDS: levETIRAcetam 500 MG TABLET 1500 MG PO ×2 (09:08→21:15)
[2019-04-05] MEDS: DEXAMETHASONE 2 MG TABLET PO (09:08)
[2019-04-05] MEDS: FENOFIBRATE,MICRONIZED 48 MG TABLET PO (09:08)
[2019-04-05] MEDS: INSULIN GLARGINE (*BKC) 100 UNITS/ML 45 UNITS SUB-Q (09:10)
[2019-04-05] MEDS: INSULIN ASPART (*BKC) 100 UNITS/ML 9 UNITS SUB-Q ×3 (09:14→18:08)
[2019-04-05] MEDS: INSULIN ASPART (*BKC) 100 UNITS/ML SUB-Q ×3 (09:14→18:08)
--- NOTE | 2019-04-05 09:37 | PCOTNOTE ---
Attempted OT session at 9:30, but patient refused, stating he was up all night and was too tired. Therapist explained to patient the need to participate in therapy, but patient still refused all ADLs, transfers and functional activities.
--- NOTE | 2019-04-05 12:28 | WPDNEURORHBP ---
Subjective Date/time seen: 04/05/19 12:28 Interval history: patient is here post subdural hematoma craniotomy along with history of having had underlying metastatic renal cell carcinoma It all depends upon his moved and difference patient's cooperates or does not today he is about the same as yesterday saying that he does not feel like doing any therapy this has been discussed with the family in detail both the daughters on the other hand the patient denies any headache chest shortness of Review of Systems Review of Systems: All systems reviewed & are unremarkable except as noted in HPI and below Functional Status Ambulation Ability Ability to Ambulate 10 Feet: Contact Guard Ability to Ambulate 50 Feet With 2 Turns: Contact Guard Ambulation Assistive Devices: Walker, Wheeled Transfers Ability Ability to Transfer In/Out of Chair: Standby Assistance Exam Const: General: comfortable and no acute distress HENMT: General nose exam: Normal nares present Mouth: Yes moist mucous membranes Eyes: General: appearance normal, both eyes and all related structures Neck: Neck: supple and no JVD Resp: Effort & Inspection: normal respiratory effort Auscultation: clear to auscultation bilaterally Cardio: Rate: regular rate Rhythm: regular rhythm GI: GI Palp: Yes Soft to palpation Auscultation: normal bowel sounds Skin: General skin exam: normal color and no rashes or lesions noted Neuro: Other: patient is speech defect and right-sided hemiparesis has improved and when he is feeling good of is able to walk with a walker and little assistance Extrem: General: normal to inspection Objective Data Vital Signs Vital Signs: Vital Signs - 24 hr 04/04/19 14:00 04/04/19 21:00 04/04/19 22:00 Temperature 36.2 C L 36.4 C L Pulse Rate 68 68 88 Respiratory Rate 18 19 Blood Pressure 125/57 L 109/64 Pulse Oximetry 93 96 04/05/19 06:00 04/05/19 09:06 Temperature 36.6 C Pulse Rate 86 86 Respiratory Rate 19 Blood Pressure 112/64 Pulse Oximetry 95 Intake/Output Intake/Output: Intake & Output 04/02/19 04/03/19 04/04/19 04/05/19 23:59 23:59 23:59 23:59 Intake Total 720 240 120 Balance 720 240 120 Meds/Results Medications: Active Medications Generic Name Dose Route Start Last Admin Trade Name Freq PRN Reason Stop Dose Admin Acetaminophen 650 mg 03/23/19 17:44 04/03/19 20:14 Tylenol Tablet PO 650 mg Q4H PRN Administration Headache Allopurinol 100 mg 03/24/19 08:00 04/05/19 09:07 Zyloprim PO 100 mg DAILY@0800 MAXINE Administration Aspirin 81 mg 03/24/19 08:00 04/05/19 09:06 Aspirin Chewable PO 81 mg DAILY@0800 MAXINE Administration Carvedilol 6.25 mg 03/23/19 21:00 04/05/19 09:06 Coreg PO 6.25 mg Q12HR MAXINE Administration Dexamethasone 2 mg 04/03/19 17:00 04/05/19 09:08 Dexamethasone Po PO 2 mg BID MAXINE Administration Dextrose 12.5 gm 03/23/19 15:53 Dextrose 50% Syringe IV PUSH PRN PRN Hypoglycemia Protocol Diltiazem HCl 30 mg 03/23/19 18:00 04/05/19 06:32 Cardizem Tab PO 30 mg Q6HR MAXINE Administration Famotidine 20 mg 03/23/19 21:00 04/05/19 09:06 Pepcid PO 20 mg Q12HR MAXINE Administration Fenofibrate 48 mg 03/24/19 09:00 04/05/19 09:08 Tricor PO 48 mg QAM MAXINE Administration Furosemide 20 mg 03/24/19 09:00 04/05/19 09:06 Lasix Tablet PO 20 mg DAILY MAXINE Administration Glucagon 1 mg 03/23/19 15:53 Glucagon For Inj IM PRN PRN Hypoglycemia Protocol Glucose 15 gm 03/23/19 15:53 Glutose 15 PO PRN PRN Hypoglycemia Protocol Heparin Sodium (Porcine) 5,000 units 03/23/19 22:00 04/05/19 06:32 Heparin Sodium SUB-Q 5,000 units Q8HR MAXINE Administration Dextrose 1,000 mls @ 100 mls/hr 03/23/19 15:53 Dextrose 5% 1,000 Ml IVPB PRN PRN Hypoglycemia Protocol Insulin Aspart 9 units 03/24/19 08:00 04/05/19 09:14 Nov
--- NOTE | 2019-04-05 13:06 | PCOTNOTE ---
Attempted OT session at 13:00, but patient refused, stating he was too tired. Therapist explained to patient the need to participate in therapy, but patient still refused to get up out of bed, to go to the bathroom, all ADLs, transfers and functional activities.
--- NOTE | 2019-04-05 14:27 | PCSTNOTE ---
The patient treatment was not able to be completed on the afternoon of 04/05/19 due to patient refusal stating he was not feeling well. Will plan to continue treatment per plan of care.
[2019-04-05] MEDS: ACETAMINOPHEN 325 MG TABLET 650 MG PO (15:06)
[2019-04-05 16:29] LABS: Glucose Point of Care 323 (65-105)
[2019-04-05 17:05] LABS: Glucose Point of Care 306 (65-105)
[2019-04-05] MEDS: DEXAMETHASONE 0.5 MG TABLET 1 MG PO (18:07)
[2019-04-05] MEDS: MONTELUKAST SODIUM 10 MG TABLET PO (21:15)
[2019-04-05] MEDS: NIACIN SA 500 MG TABLET 2000 MG PO (21:15)
[2019-04-05 21:42] LABS: Glucose Point of Care 315 (65-105)
[2019-04-06] MEDS: DILTIAZEM HCL 30 MG TABLET PO ×4 (05:52→16:45)
[2019-04-06] MEDS: HEPARIN SODIUM 5,000 UNITS/ML VIAL 5000 UNITS SUB-Q ×3 (05:52→20:43)
[2019-04-06 06:00] VITALS: BP 121/73; PULSE 62; RESP 18; TEMP 36.2; O2SAT 97
[2019-04-06 08:00] VITALS: PULSE 62; RESP 18; O2SAT 97
[2019-04-06 08:16] LABS: Glucose Point of Care 338 (65-105)
--- NOTE | 2019-04-06 09:35 | PCOTNOTE ---
Attempted OT session this morning, but patient refused, stating he was tired and needed to rest. Therapist explained the need for patient to participate so he can remain strong and be able to better care for himself since he's going home in a few days. Patient continued to refuse all ADLs, transfers, exercises and functional activities.
--- NOTE | 2019-04-06 09:45 | PCOTNOTE ---
Therapist checked with patient again and encouraged patient to participate and possibly get cleaned up and change clothes as he hadn't been out of bed yet this morning, but patient continued to refuse.
[2019-04-06] MEDS: FAMOTIDINE 20 MG TABLET PO ×2 (10:04→20:42)
[2019-04-06 10:05] VITALS: PULSE 62
[2019-04-06] MEDS: allopurinoL 100 MG TABLET PO (10:05)
[2019-04-06] MEDS: ASPIRIN 81 MG CHEWABLE TABLET PO (10:05)
[2019-04-06] MEDS: carvediloL 6.25 MG TABLET PO ×2 (10:05→20:43)
[2019-04-06] MEDS: DEXAMETHASONE 0.5 MG TABLET 1 MG PO ×2 (10:06→16:44)
[2019-04-06] MEDS: levETIRAcetam 500 MG TABLET 1500 MG PO ×2 (10:07→20:43)
[2019-04-06] MEDS: FENOFIBRATE,MICRONIZED 48 MG TABLET PO (10:07)
[2019-04-06] MEDS: PAROXETINE 20 MG TABLET PO (10:07)
[2019-04-06] MEDS: FUROSEMIDE 20 MG TABLET PO (10:07)
[2019-04-06] MEDS: ROSUVASTATIN 5 MG TABLET PO (10:08)
[2019-04-06] MEDS: PANTOPRAZOLE 40 MG TABLET PO ×2 (10:08→20:42)
[2019-04-06] MEDS: INSULIN GLARGINE (*BKC) 100 UNITS/ML 45 UNITS SUB-Q (10:10)
[2019-04-06] MEDS: INSULIN ASPART (*BKC) 100 UNITS/ML 9 UNITS SUB-Q ×3 (10:12→17:13)
[2019-04-06] MEDS: INSULIN ASPART (*BKC) 100 UNITS/ML SUB-Q ×3 (10:14→17:13)
[2019-04-06] MEDS: PSYLLIUM POWDER PACKET 1 PACKET PO ×2 (10:23→20:43)
[2019-04-06 12:07] LABS: Glucose Point of Care 416 (65-105)
--- NOTE | 2019-04-06 12:23 | PC.NURSE ---
Per dr. capone give 5 units novolog sliding scale and scheduled insulin for 416 accucheck.
--- NOTE | 2019-04-06 13:41 | WPDNEURORHBP ---
Subjective Date/time seen: 04/06/19 13:41 Interval history: patient denies any headache nausea vomiting chest pain or shortness of breath he is here status post removal of subdural hematoma with underlying history of renal cell carcinoma and metastatic disease Patient is capable of engage in therapy however it seems like he is not much motivated and cooperative always saying that he is unable to do it or he refuses to do it but whenever he is engage in the therapy is able to walk with little assistance and do fairly well Review of Systems Review of Systems: All systems reviewed & are unremarkable except as noted in HPI and below Functional Status Ambulation Ability Ability to Ambulate 10 Feet: Contact Guard Ability to Ambulate 50 Feet With 2 Turns: Contact Guard Ambulation Assistive Devices: Walker, Wheeled Transfers Ability Ability to Transfer In/Out of Chair: Standby Assistance Exam Const: General: comfortable and no acute distress HENMT: General nose exam: Normal nares present Mouth: Yes moist mucous membranes Eyes: General: appearance normal, both eyes and all related structures Neck: Neck: supple and no JVD Resp: Effort & Inspection: normal respiratory effort Auscultation: clear to auscultation bilaterally Cardio: Rate: regular rate Rhythm: regular rhythm GI: GI Palp: Yes Soft to palpation Auscultation: normal bowel sounds : Other: and the G-tube is clean and healthy Skin: General skin exam: normal color and no rashes or lesions noted Neuro: Other: patient is speech defect has significantly improved he is communicative well alert and oriented follows come on quite well but says that he is tired and would not want to work in therapy his weakness has also improved and when he is motivated enough that he is able to walk with the assistance Extrem: General: normal to inspection Objective Data Vital Signs Vital Signs: Vital Signs - 24 hr 04/05/19 14:00 04/05/19 15:06 04/05/19 21:14 Temperature 36.2 C L 36.6 C Pulse Rate 64 78 Respiratory Rate 17 Blood Pressure 103/63 Pulse Oximetry 97 04/05/19 22:00 04/06/19 06:00 04/06/19 08:00 Temperature 36.4 C L 36.2 C L Pulse Rate 62 62 62 Respiratory Rate 16 18 18 Blood Pressure 111/64 121/73 Pulse Oximetry 98 97 97 04/06/19 10:05 Temperature Pulse Rate 62 Respiratory Rate Blood Pressure Pulse Oximetry Intake/Output Intake/Output: Intake & Output 04/03/19 04/04/19 04/05/19 04/06/19 23:59 23:59 23:59 23:59 Intake Total 240 600 240 Balance 240 600 240 Meds/Results Medications: Active Medications Generic Name Dose Route Start Last Admin Trade Name Freq PRN Reason Stop Dose Admin Acetaminophen 650 mg 03/23/19 17:44 04/05/19 15:06 Tylenol Tablet PO 650 mg Q4H PRN Administration Headache Allopurinol 100 mg 03/24/19 08:00 04/06/19 10:05 Zyloprim PO 100 mg DAILY@0800 MAXINE Administration Aspirin 81 mg 03/24/19 08:00 04/06/19 10:05 Aspirin Chewable PO 81 mg DAILY@0800 MAXINE Administration Carvedilol 6.25 mg 03/23/19 21:00 04/06/19 10:05 Coreg PO 6.25 mg Q12HR MAXINE Administration Dexamethasone 1 mg 04/05/19 17:00 04/06/19 10:06 Dexamethasone Po PO 1 mg BID MAXINE Administration Dextrose 12.5 gm 03/23/19 15:53 Dextrose 50% Syringe IV PUSH PRN PRN Hypoglycemia Protocol Diltiazem HCl 30 mg 03/23/19 18:00 04/06/19 12:12 Cardizem Tab PO 30 mg Q6HR MAXINE Administration Famotidine 20 mg 03/23/19 21:00 04/06/19 10:04 Pepcid PO 20 mg Q12HR MAXINE Administration Fenofibrate 48 mg 03/24/19 09:00 04/06/19 10:07 Tricor PO 48 mg QAM MAXINE Administration Furosemide 20 mg 03/24/19 09:00 04/06/19 10:07 Lasix Tablet PO 20 mg DAILY MAXINE Administration Glucagon 1 mg 03/23/19 15:53 Glucagon For Inj IM PRN PRN Hypoglycemia Protocol Glucose 15 gm 03/23/19 15:53 Glutose 15 PO PRN PRN
--- NOTE | 2019-04-06 13:48 | PCOTNOTE ---
OT treatment attempted at 13:00 and again at 13:30. Patient declined all activity. Patient educated in purpose and benefits of therapy but continues to decline.
[2019-04-06 14:00] VITALS: BP 124/60; PULSE 52; RESP 16; TEMP 36.6; O2SAT 99
--- NOTE | 2019-04-06 14:00 | PCPTNOTE ---
Attempted to see patient at 11:05 for PT, however patient refused to participate.
--- NOTE | 2019-04-06 14:38 | PCDIET ---
Nutrition Follow-Up Complete: Nutrition Diagnosis: Inadequate oral intake related to multiple medical issues, primarily recent SDH, as evidenced by intakes 0-25% and need for supplemental enteral feedings. Nutrition Goals: Intakes improved to >50%, tube feeding tolerance (when given) Goals met. Patient with intakes >50% at most meals with average intake of 72% since 04/04/19. Tube feeding bolus x 1 documented/tolerated. Agree with diabetic diet and supplemental tube feeding when <50% of meal is consumed. Last recorded weight is 120 kg. Recommend obtaining new weight. Bowel Motility: +BM on 04/05/19. Labs Reviewed: Glu (338) Meds Noted: Dexamethasone, Lasix, Pepcid, Novolog, Lantus, Niacin, Protonix, Metamucil Additional Notes: Head incision well approximated. No documented pressure sores. Will continue to monitor with same goals. Nutrition Monitoring and Evaluation: Follow up every Tuesday/Tuesday.
--- NOTE | 2019-04-06 16:08 | PCSTNOTE ---
Patient refused treatment one of two sessions due to complaints of fatigue. Therapy treatment minutes not met.
[2019-04-06 17:07] LABS: Glucose Point of Care 386 (65-105)
[2019-04-06] MEDS: MONTELUKAST SODIUM 10 MG TABLET PO (20:42)
[2019-04-06 20:43] VITALS: PULSE 78
[2019-04-06] MEDS: NIACIN SA 500 MG TABLET 2000 MG PO (20:43)
[2019-04-06 21:44] LABS: Glucose Point of Care 229 (65-105)
[2019-04-06 22:00] VITALS: BP 122/64; PULSE 66; RESP 19; TEMP 36.8; O2SAT 96
[2019-04-07] MEDS: DILTIAZEM HCL 30 MG TABLET PO ×4 (00:11→18:04)
[2019-04-07 04:51] LABS: Basophils Percent Auto 0.2 % (0.2-1.2); Eosinophils Percent Auto 0.1 % (0-4.4); Hematocrit 39.8 % (42.0-52.0); Hemoglobin 12.9 g/dL (14.0-18.0); Immature Granulocyte Absolute 0.88 K/mm3 (0.00-0.031); Immature Granulocyte Percent A 3.5 % (0-0.5); Lymphocytes Absolute Auto 1.45 K/mm3 (0.9-3.2); Lymphocytes Percent Auto 5.8 % (18.3-44.2); Mean Corpuscular HGB Conc 32.4 g/dl (32-36); Mean Corpuscular Hemoglobin 28.7 pg (26-34); Mean Corpuscular Volume 88.4 fl (80-100); Mean Platelet Volume 9.6 fl (7.4-10.4); Monocytes Absolute Auto 2.3 K/mm3 (0.1-0.6); Neutrophils Absolute Auto 20.5 K/mm3 (1.3-6.7); Neutrophils Percent Auto 81.4 % (45.5-73.1); Platelet Count Result 208 k/mm3 (150-375); Red Cell Distribution Width 18.1 % (11.5-14.5); White Blood Count 25.1 K/mm3 (4.5-10.0)
[2019-04-07 05:04] LABS: Blood Urea Nitrogen 50 mg/dL (9-20); Calcium 8.6 mg/dL (8.4-10.2); Carbon Dioxide 29 mmol/L (22-30); Chloride 93 mmol/L (98-107); Estimated CRCL calculation 54 ml/min; Estimated Glomerular Filt Rate 50; Glucose 208 mg/dL (75-110); Potassium 4.1 mmol/L (3.4-5.0); Sodium 129 mmol/L (137-145)
[2019-04-07 06:00] VITALS: BP 100/55; PULSE 68; RESP 19; TEMP 36.2; O2SAT 96
[2019-04-07] MEDS: HEPARIN SODIUM 5,000 UNITS/ML VIAL 5000 UNITS SUB-Q ×3 (06:36→21:01)
[2019-04-07 06:52] LABS: Ovalocytes 1+ (NORMAL); Platelet Estimate Adequate (Adequate)
--- NOTE | 2019-04-07 10:14 | PCPTNOTE ---
Attempted to see patient for PT, however patient refused to participate. Patient would not even turn over to supine to participate in bilateral lower extremity exercises in bed.
[2019-04-07] MEDS: ASPIRIN 81 MG CHEWABLE TABLET PO (11:12)
[2019-04-07] MEDS: allopurinoL 100 MG TABLET PO (11:12)
[2019-04-07] MEDS: PANTOPRAZOLE 40 MG TABLET PO ×2 (11:13→20:57)
[2019-04-07] MEDS: DEXAMETHASONE 0.5 MG TABLET 1 MG PO (11:13)
[2019-04-07] MEDS: FAMOTIDINE 20 MG TABLET PO ×2 (11:14→20:57)
[2019-04-07] MEDS: FUROSEMIDE 20 MG TABLET PO (11:14)
[2019-04-07] MEDS: PSYLLIUM POWDER PACKET 1 PACKET PO ×2 (11:14→21:01)
[2019-04-07] MEDS: PAROXETINE 20 MG TABLET PO (11:14)
[2019-04-07] MEDS: levETIRAcetam 500 MG TABLET 1500 MG PO ×2 (11:14→20:58)
[2019-04-07] MEDS: FENOFIBRATE,MICRONIZED 48 MG TABLET PO (11:14)
[2019-04-07] MEDS: ROSUVASTATIN 5 MG TABLET PO (11:15)
[2019-04-07 11:43] VITALS: PULSE 68
[2019-04-07] MEDS: carvediloL 6.25 MG TABLET PO ×2 (11:43→20:57)
[2019-04-07] MEDS: INSULIN ASPART (*BKC) 100 UNITS/ML 9 UNITS SUB-Q ×3 (11:44→18:04)
[2019-04-07] MEDS: INSULIN GLARGINE (*BKC) 100 UNITS/ML 45 UNITS SUB-Q (11:47)
--- NOTE | 2019-04-07 12:12 | PCOTNOTE ---
Pt refused skilled OT treatment this am. Pt's family was present.
[2019-04-07 12:18] LABS: Glucose Point of Care 315 (65-105)
[2019-04-07 14:00] VITALS: BP 118/65; PULSE 75; RESP 16; TEMP 36.3; O2SAT 91
[2019-04-07] MEDS: INSULIN ASPART (*BKC) 100 UNITS/ML SUB-Q ×2 (14:17→18:05)
--- NOTE | 2019-04-07 15:13 | WPDNEURORHBP ---
Subjective Date/time seen: 04/07/19 15:13 Interval history: patient remains awake alert follows commands and expresses himself denies any headache chest pain shortness of breath The laboratory daughter however reveals leukocytosis of 25,000 which is most likely related to him being on dexamethasone which I have discontinue, however he would need a chest x-ray urinalysis and also repeat CBC prior to his discharge in the morning based on that we will decide about his discharge tomorrow or not Review of Systems Review of Systems: All systems reviewed & are unremarkable except as noted in HPI and below Functional Status Ambulation Ability Ability to Ambulate 10 Feet: Contact Guard Ability to Ambulate 50 Feet With 2 Turns: Contact Guard Ambulation Assistive Devices: Walker, Wheeled Transfers Ability Ability to Transfer In/Out of Chair: Standby Assistance Exam Const: General: comfortable and no acute distress HENMT: General nose exam: Normal nares present Mouth: Yes moist mucous membranes Eyes: General: appearance normal, both eyes and all related structures Neck: Neck: supple and no JVD Resp: Effort & Inspection: normal respiratory effort Auscultation: clear to auscultation bilaterally Cardio: Rate: regular rate Rhythm: regular rhythm GI: GI Palp: Yes Soft to palpation Auscultation: normal bowel sounds Other: the PEG tube area is clean and healthy Skin: General skin exam: normal color and no rashes or lesions noted Neuro: Other: improved expressive aphasia and right-sided weakness however patient remains generally weak and standing and refuses to engage in therapy at but on the other hand he is eating fairly decently Extrem: General: normal to inspection Objective Data Vital Signs Vital Signs: Vital Signs - 24 hr 04/06/19 20:43 04/06/19 22:00 04/07/19 06:00 Temperature 36.8 C 36.2 C L Pulse Rate 78 66 68 Respiratory Rate 19 19 Blood Pressure 122/64 100/55 L Pulse Oximetry 96 96 04/07/19 11:43 Temperature Pulse Rate 68 Respiratory Rate Blood Pressure Pulse Oximetry Intake/Output Intake/Output: Intake & Output 04/04/19 04/05/19 04/06/19 04/07/19 23:59 23:59 23:59 23:59 Intake Total 240 600 720 300 Balance 240 600 720 300 Meds/Results Medications: Active Medications Generic Name Dose Route Start Last Admin Trade Name Freq PRN Reason Stop Dose Admin Acetaminophen 650 mg 03/23/19 17:44 04/05/19 15:06 Tylenol Tablet PO 650 mg Q4H PRN Administration Headache Allopurinol 100 mg 03/24/19 08:00 04/07/19 11:12 Zyloprim PO 100 mg DAILY@0800 MAXINE Administration Aspirin 81 mg 03/24/19 08:00 04/07/19 11:12 Aspirin Chewable PO 81 mg DAILY@0800 MAXINE Administration Carvedilol 6.25 mg 03/23/19 21:00 04/07/19 11:43 Coreg PO 6.25 mg Q12HR MAXINE Administration Dextrose 12.5 gm 03/23/19 15:53 Dextrose 50% Syringe IV PUSH PRN PRN Hypoglycemia Protocol Diltiazem HCl 30 mg 03/23/19 18:00 04/07/19 14:11 Cardizem Tab PO 30 mg Q6HR MAXINE Administration Famotidine 20 mg 03/23/19 21:00 04/07/19 11:14 Pepcid PO 20 mg Q12HR MAXINE Administration Fenofibrate 48 mg 03/24/19 09:00 04/07/19 11:14 Tricor PO 48 mg QAM MAXINE Administration Furosemide 20 mg 03/24/19 09:00 04/07/19 11:14 Lasix Tablet PO 20 mg DAILY MAXINE Administration Glucagon 1 mg 03/23/19 15:53 Glucagon For Inj IM PRN PRN Hypoglycemia Protocol Glucose 15 gm 03/23/19 15:53 Glutose 15 PO PRN PRN Hypoglycemia Protocol Heparin Sodium (Porcine) 5,000 units 03/23/19 22:00 04/07/19 14:16 Heparin Sodium SUB-Q 5,000 units Q8HR MAXINE Administration Dextrose 1,000 mls @ 100 mls/hr 03/23/19 15:53 Dextrose 5% 1,000 Ml IVPB PRN PRN Hypoglycemia Protocol Insulin Aspart 9 units 03/24/19 08:00 04/07/19 14:12 Novolog SUB-Q 9 units TIDWM MAXINE Administration I
--- NOTE | 2019-04-07 16:01 | PCPTNOTE ---
Patient missed 36 minutes of PT this date 04/07/2019 due to refusal to participate.
[2019-04-07 17:36] LABS: Glucose Point of Care 303 (65-105)
[2019-04-07] MEDS: NIACIN SA 500 MG TABLET 2000 MG PO (20:56)
[2019-04-07 20:57] VITALS: PULSE 80
[2019-04-07] MEDS: MONTELUKAST SODIUM 10 MG TABLET PO (20:57)
[2019-04-07] MEDS: AMOXICILLIN/CLAVULANATE K 875-125 MG TAB 1 TABLET PO (20:57)
[2019-04-07 21:28] LABS: Add Urine Microscopic? YES; Appearance Urine Clear (Clear); Bilirubin Urine Negative (Negative); Blood Urine Negative (Negative); Color Urine Yellow (Yellow); Glucose Urine UA 2+ mg/dL (Negative); Ketones Urine Negative (Negative); Leukocyte Esterase Ur Negative LEU/UL (Negative); Mucus Urine Rare /lpf; Nitrate Urine Negative (Negative); Protein Urine Negative (Negative); Specific Grav Ur 1.015 (1.001-1.035); Squamous Epithelial Cell Urine Rare /hpf (Few); Urobilinogen Urine Negative mg/dL (<2.0); WBC Urine 0-3 /hpf
[2019-04-07 21:54] LABS: Glucose Point of Care 237 (65-105)
[2019-04-07 22:00] VITALS: BP 101/56; PULSE 72; RESP 20; TEMP 36.6; O2SAT 98
[2019-04-08] MEDS: DILTIAZEM HCL 30 MG TABLET PO ×4 (01:11→18:16)
[2019-04-08 05:33] LABS: Basophils Percent Auto 0.2 % (0.2-1.2); Eosinophils Percent Auto 0.1 % (0-4.4); Hematocrit 40.9 % (42.0-52.0); Hemoglobin 13.4 g/dL (14.0-18.0); Immature Granulocyte Absolute 0.52 K/mm3 (0.00-0.031); Immature Granulocyte Percent A 2.7 % (0-0.5); Lymphocytes Absolute Auto 0.95 K/mm3 (0.9-3.2); Lymphocytes Percent Auto 4.9 % (18.3-44.2); Mean Corpuscular HGB Conc 32.8 g/dl (32-36); Mean Corpuscular Hemoglobin 28.5 pg (26-34); Mean Corpuscular Volume 86.8 fl (80-100); Mean Platelet Volume 10.2 fl (7.4-10.4); Monocytes Absolute Auto 1.7 K/mm3 (0.1-0.6); Monocytes Percent Auto 8.9 % (2.6-8.5); Neutrophils Absolute Auto 16.2 K/mm3 (1.3-6.7); Neutrophils Percent Auto 83.2 % (45.5-73.1); Platelet Count Result 173 k/mm3 (150-375); Red Blood Count 4.71 M/mm3 (4.6-6.20); Red Cell Distribution Width 18.5 % (11.5-14.5); White Blood Count 19.5 K/mm3 (4.5-10.0)
[2019-04-08] MEDS: HEPARIN SODIUM 5,000 UNITS/ML VIAL 5000 UNITS SUB-Q ×3 (05:54→20:10)
[2019-04-08 06:00] VITALS: BP 102/57; PULSE 58; RESP 20; TEMP 36.5; O2SAT 100
[2019-04-08 07:04] LABS: Glucose Point of Care 260 (65-105)
[2019-04-08 07:11] LABS: Crenated RBC 1+ (NORMAL); Platelet Estimate Adequate (Adequate); Poikilocytosis 1+ (NORMAL)
[2019-04-08] MEDS: allopurinoL 100 MG TABLET PO (09:22)
[2019-04-08] MEDS: ASPIRIN 81 MG CHEWABLE TABLET PO (09:23)
[2019-04-08] MEDS: AMOXICILLIN/CLAVULANATE K 875-125 MG TAB 1 TABLET PO ×2 (09:23→20:09)
[2019-04-08] MEDS: FENOFIBRATE,MICRONIZED 48 MG TABLET PO (09:24)
[2019-04-08] MEDS: levETIRAcetam 500 MG TABLET 1500 MG PO ×2 (09:24→20:10)
[2019-04-08] MEDS: FUROSEMIDE 20 MG TABLET PO (09:24)
[2019-04-08] MEDS: FAMOTIDINE 20 MG TABLET PO ×2 (09:24→20:09)
[2019-04-08] MEDS: PANTOPRAZOLE 40 MG TABLET PO ×2 (09:25→20:10)
[2019-04-08] MEDS: ROSUVASTATIN 5 MG TABLET PO (09:25)
[2019-04-08] MEDS: PAROXETINE 20 MG TABLET PO (09:25)
[2019-04-08] MEDS: INSULIN GLARGINE (*BKC) 100 UNITS/ML 45 UNITS SUB-Q (09:25)
[2019-04-08] MEDS: PSYLLIUM POWDER PACKET 1 PACKET PO ×2 (09:25→20:10)
[2019-04-08] MEDS: INSULIN ASPART (*BKC) 100 UNITS/ML 9 UNITS SUB-Q ×3 (09:28→18:14)
[2019-04-08] MEDS: INSULIN ASPART (*BKC) 100 UNITS/ML SUB-Q ×3 (09:29→18:14)
[2019-04-08 09:43] VITALS: PULSE 68
[2019-04-08] MEDS: carvediloL 6.25 MG TABLET PO ×2 (09:43→20:09)
--- NOTE | 2019-04-08 11:51 | PCOTNOTE ---
Attempted to see Pt this AM. Pt was sleeping in bed and refused to get out of bed for ADLs. Pt declined other IADLs and/or therapeutic exercises at this time. Pt repeatedly stated, I'm going home today. Pt was educated on the importance of needing to participate in therapy in order to increase independence with daily occupations. Pt was encouraged to wash around g-tube area but continued to refuse. RN was made aware of pt's refusal. Will attempt to see Pt this PM for continued therapy tx.
[2019-04-08 12:17] LABS: Glucose Point of Care 236 (65-105)
--- NOTE | 2019-04-08 12:51 | PCPTNOTE ---
Patient refused treatment this session due to not feeling up to it.
--- NOTE | 2019-04-08 13:51 | PCOTNOTE ---
Attempted to see Pt this P.M. Pt refused all ADLs, therapeutic activities, and/or UE exercises. Pt's daughter and therapist provided max encouragement for pt's participation in therapy this P.M, however, pt still refused. Pt was educated on the importance of needing to participate in therapy for independence and overall greater health. Pt's daughter was present for pt's refusal and session. Pt was not able to get full minutes today.
[2019-04-08 14:00] VITALS: BP 105/61; PULSE 66; RESP 18; TEMP 36.8; O2SAT 97
--- NOTE | 2019-04-08 14:33 | WPDNEURORHBP ---
Subjective Date/time seen: 04/08/19 14:33 Interval history: patient's remains about the same and does not have any new specific complaints particularly denies any headache nausea vomiting chest pain or shortness of breath However in spite of being all awake and alert and having really capacity to engage in therapy he refuses and and denies it He was supposed to have been discharged today however unfortunately he has developed pneumonia which is being treated with Augmentin The leukocytosis has improved which I believe was related to begin with dexamethasone and which has been discontinued more than 24 hours ago Review of Systems Constitutional: Constitutional: Reports no additional constitutional complaints Eyes: Eyes: Reports no additional eye complaints ENT: Reports system reviewed and no additional complaints, except as documented Cardiovascular: Cardiovascular: Reports no additional cardiovascular complaints Respiratory: Respiratory: Reports no additional respiratory complaints Gastrointestinal: Gastrointestinal: Reports no additional gastrointestinal complaints Genitourinary: Genitourinary: Reports no additional male genitourinary complaints Musculoskeletal: Musculoskeletal: Reports no additional musculoskeletal complaints Integumentary/Breasts: Skin/Breast: Reports system reviewed and no additional complaints, except as docu Neurologic: Comments: patient is alert and oriented x3 however generally weak and does not want to engage in therapy to my eyes is expressive aphasia has improved and right-sided hemiparesis is also and he is capable of walking but he just does not want to engage in therapy Psychiatric: Psychiatric: Reports no additional psychiatric complaints Functional Status Ambulation Ability Ability to Ambulate 10 Feet: Contact Guard Ability to Ambulate 50 Feet With 2 Turns: Contact Guard Ambulation Assistive Devices: Walker, Wheeled Transfers Ability Ability to Transfer In/Out of Chair: Standby Assistance Exam Const: General: comfortable and no acute distress HENMT: General nose exam: Normal nares present Mouth: Yes moist mucous membranes Eyes: General: appearance normal, both eyes and all related structures Neck: Neck: supple and no JVD Resp: Effort & Inspection: normal respiratory effort Auscultation: clear to auscultation bilaterally Cardio: Rate: regular rate Rhythm: regular rhythm GI: GI Palp: Yes Soft to palpation Auscultation: normal bowel sounds Skin: General skin exam: normal color and no rashes or lesions noted Neuro: Other: patient is alert and oriented x3 with relatively intact cranial nerve examination much improved expressive aphasia and right-sided hemiparesis however seems like not motivated to do anything and tries to just simply lay in the bed Objective Data Vital Signs Vital Signs: Vital Signs - 24 hr 04/07/19 20:57 04/07/19 22:00 04/08/19 06:00 Temperature 36.6 C 36.5 C Pulse Rate 80 72 58 L Respiratory Rate 20 20 Blood Pressure 101/56 L 102/57 L Pulse Oximetry 98 100 04/08/19 09:43 Temperature Pulse Rate 68 Respiratory Rate Blood Pressure Pulse Oximetry Intake/Output Intake/Output: Intake & Output 04/05/19 04/06/19 04/07/19 04/08/19 23:59 23:59 23:59 23:59 Intake Total 600 720 400 360 Balance 600 720 400 360 Meds/Results Medications: Active Medications Generic Name Dose Route Start Last Admin Trade Name Freq PRN Reason Stop Dose Admin Acetaminophen 650 mg 03/23/19 17:44 04/05/19 15:06 Tylenol Tablet PO 650 mg Q4H PRN Administration Headache Allopurinol 100 mg 03/24/19 08:00 04/08/19 09:22 Zyloprim PO 100 mg DAILY@0800 [facility] Administration Amoxicillin/Clavulanate Potassium 1 tablet 04/07/19 21:00 04/08/19 09:23 Augmentin 875-125 Mg Tab PO 1 tablet Q12HR MAXINE Administration Aspirin 81 mg 03/24/19 08:00 04/08/19 09:23 Aspirin Chewable PO 81 mg DAILY@0800 [facility] Administration Car
--- NOTE | 2019-04-08 15:32 | PCPTNOTE ---
Patient refused treatment this session due to being tired.
[2019-04-08 18:13] LABS: Glucose Point of Care 216 (65-105)
[2019-04-08 20:09] VITALS: PULSE 78
[2019-04-08] MEDS: MONTELUKAST SODIUM 10 MG TABLET PO (20:09)
[2019-04-08] MEDS: NIACIN SA 500 MG TABLET 2000 MG PO (20:10)
[2019-04-08 20:43] LABS: Glucose Point of Care 189 (65-105)
[2019-04-08 22:00] VITALS: BP 109/69; PULSE 79; RESP 20; TEMP 36.6; O2SAT 97
[2019-04-09] MEDS: DILTIAZEM HCL 30 MG TABLET PO ×4 (00:29→17:18)
[2019-04-09] MEDS: HEPARIN SODIUM 5,000 UNITS/ML VIAL 5000 UNITS SUB-Q ×3 (05:43→20:45)
[2019-04-09 06:00] VITALS: BP 102/66; PULSE 73; RESP 19; TEMP 36.4; O2SAT 96
[2019-04-09 06:11] LABS: Glucose Point of Care 128 (65-105)
[2019-04-09 06:22] LABS: Basophils Percent Auto 0.2 % (0.2-1.2); Eosinophils Absolute Auto 0.2 K/mm3 (0-0.3); Hematocrit 42.8 % (42.0-52.0); Hemoglobin 13.6 g/dL (14.0-18.0); Immature Granulocyte Absolute 0.45 K/mm3 (0.00-0.031); Immature Granulocyte Percent A 2.6 % (0-0.5); Lymphocytes Absolute Auto 1.33 K/mm3 (0.9-3.2); Lymphocytes Percent Auto 7.6 % (18.3-44.2); Mean Corpuscular HGB Conc 31.8 g/dl (32-36); Mean Corpuscular Hemoglobin 28.8 pg (26-34); Mean Corpuscular Volume 90.5 fl (80-100); Mean Platelet Volume 10.4 fl (7.4-10.4); Monocytes Absolute Auto 2.7 K/mm3 (0.1-0.6); Monocytes Percent Auto 15.5 % (2.6-8.5); Neutrophils Absolute Auto 12.8 K/mm3 (1.3-6.7); Neutrophils Percent Auto 73.1 % (45.5-73.1); Platelet Count Result 148 k/mm3 (150-375); Red Blood Count 4.73 M/mm3 (4.6-6.20); Red Cell Distribution Width 19.4 % (11.5-14.5); White Blood Count 17.5 K/mm3 (4.5-10.0)
[2019-04-09 06:39] LABS: Blood Urea Nitrogen 40 mg/dL (9-20); Calcium 8.5 mg/dL (8.4-10.2); Carbon Dioxide 28 mmol/L (22-30); Chloride 97 mmol/L (98-107); Estimated CRCL calculation 58 ml/min; Estimated Glomerular Filt Rate 54; Glucose 105 mg/dL (75-110); Potassium 3.7 mmol/L (3.4-5.0); Sodium 133 mmol/L (137-145)
[2019-04-09 08:00] VITALS: PULSE 73; RESP 19; O2SAT 96
[2019-04-09] MEDS: allopurinoL 100 MG TABLET PO (09:19)
[2019-04-09] MEDS: ASPIRIN 81 MG CHEWABLE TABLET PO (09:19)
[2019-04-09] MEDS: AMOXICILLIN/CLAVULANATE K 875-125 MG TAB 1 TABLET PO ×2 (09:19→20:43)
[2019-04-09] MEDS: carvediloL 6.25 MG TABLET PO ×2 (09:19→20:43)
[2019-04-09] MEDS: levETIRAcetam 500 MG TABLET 1500 MG PO ×2 (09:20→20:44)
[2019-04-09] MEDS: FAMOTIDINE 20 MG TABLET PO ×2 (09:20→20:43)
[2019-04-09] MEDS: FUROSEMIDE 20 MG TABLET PO (09:20)
[2019-04-09] MEDS: FENOFIBRATE,MICRONIZED 48 MG TABLET PO (09:20)
[2019-04-09] MEDS: PANTOPRAZOLE 40 MG TABLET PO ×2 (09:21→20:44)
[2019-04-09] MEDS: PSYLLIUM POWDER PACKET 1 PACKET PO ×2 (09:21→20:44)
[2019-04-09] MEDS: ROSUVASTATIN 5 MG TABLET PO (09:21)
[2019-04-09] MEDS: PAROXETINE 20 MG TABLET PO (09:21)
[2019-04-09 09:27] LABS: Glucose Point of Care 206 (65-105)
[2019-04-09] MEDS: INSULIN GLARGINE (*BKC) 100 UNITS/ML 45 UNITS SUB-Q (09:29)
[2019-04-09] MEDS: INSULIN ASPART (*BKC) 100 UNITS/ML SUB-Q ×3 (09:30→17:14)
[2019-04-09] MEDS: INSULIN ASPART (*BKC) 100 UNITS/ML 9 UNITS SUB-Q ×3 (09:31→17:15)
--- NOTE | 2019-04-09 10:53 | PCOTNOTE ---
Attempted OT session with patient at 9:32, but patient refused all ADLs, functional activities and transfers. Benefits of therapy were explained, but patient refused, stating I'm going home. I'll do it later.
--- NOTE | 2019-04-09 10:54 | PCPTNOTE ---
Patient refused 2 attempts at any aspect of physical therapy this am. Patient reports being too tired to participate. Therese Schwarz PT
[2019-04-09 11:50] LABS: Glucose Point of Care 205 (65-105)
--- NOTE | 2019-04-09 13:34 | PCSTNOTE ---
Patient refused treatment this session. He does not want therapy.
[2019-04-09 14:39] VITALS: BP 109/55; PULSE 78; RESP 16; TEMP 36.6; O2SAT 98
--- NOTE | 2019-04-09 14:57 | PCPTNOTE ---
Patient refused PT treatment again in PT after 2 attempts to encourage participation. Natalie Schwarz PT
[2019-04-09 16:50] LABS: Glucose Point of Care 307 (65-105)
[2019-04-09] MEDS: NIACIN SA 500 MG TABLET 2000 MG PO (20:42)
[2019-04-09 20:43] VITALS: PULSE 80
[2019-04-09] MEDS: MONTELUKAST SODIUM 10 MG TABLET PO (20:44)
[2019-04-09 21:04] LABS: Glucose Point of Care 243 (65-105)
[2019-04-09 22:00] VITALS: BP 107/61; PULSE 72; RESP 24; TEMP 36.6; O2SAT 96
[2019-04-10] MEDS: DILTIAZEM HCL 30 MG TABLET PO ×3 (00:51→13:17)
[2019-04-10] MEDS: HEPARIN SODIUM 5,000 UNITS/ML VIAL 5000 UNITS SUB-Q ×2 (05:38→13:16)
[2019-04-10 06:00] VITALS: BP 114/54; PULSE 64; RESP 20; TEMP 36.4; O2SAT 94
[2019-04-10 06:54] LABS: Glucose Point of Care 243 (65-105)
[2019-04-10] MEDS: PSYLLIUM POWDER PACKET 1 PACKET PO (09:10)
[2019-04-10] MEDS: allopurinoL 100 MG TABLET PO (09:11)
[2019-04-10] MEDS: ASPIRIN 81 MG CHEWABLE TABLET PO (09:11)
[2019-04-10] MEDS: INSULIN ASPART (*BKC) 100 UNITS/ML 9 UNITS SUB-Q ×2 (09:11→13:17)
[2019-04-10] MEDS: INSULIN ASPART (*BKC) 100 UNITS/ML SUB-Q ×2 (09:11→13:16)
[2019-04-10 09:12] VITALS: PULSE 64
[2019-04-10] MEDS: carvediloL 6.25 MG TABLET PO (09:12)
[2019-04-10] MEDS: AMOXICILLIN/CLAVULANATE K 875-125 MG TAB 1 TABLET PO (09:12)
[2019-04-10] MEDS: INSULIN GLARGINE (*BKC) 100 UNITS/ML 45 UNITS SUB-Q (09:13)
[2019-04-10] MEDS: FAMOTIDINE 20 MG TABLET PO (09:13)
[2019-04-10] MEDS: FUROSEMIDE 20 MG TABLET PO (09:13)
[2019-04-10] MEDS: PAROXETINE 20 MG TABLET PO (09:13)
[2019-04-10] MEDS: PANTOPRAZOLE 40 MG TABLET PO (09:13)
[2019-04-10] MEDS: levETIRAcetam 500 MG TABLET 1500 MG PO (09:13)
[2019-04-10] MEDS: FENOFIBRATE,MICRONIZED 48 MG TABLET PO (09:13)
[2019-04-10] MEDS: ROSUVASTATIN 5 MG TABLET PO (09:13)
--- NOTE | 2019-04-10 09:35 | PCOTNOTE ---
Attempted OT session with patient, but patient refused ADLs, transfers and all functional activities, stating I'll do it later. Patient educated on benefits of therapy, but patient still refused.
--- NOTE | 2019-04-10 10:49 | PCPTNOTE ---
Attempted to see patient at 10:35 for PT, however patient refused d/t fatigue.
--- NOTE | 2019-04-10 11:29 | WPDNEURORHBP ---
Subjective Date/time seen: 04/10/19 11:29 Interval history: patient's remains alert without any specific complaints however refusing to engage in the physical therapy and/or a compression therapy depending upon his mood he is afebrile and has stable vital signs his was on telephone for the team conference today the summary I will dictate in the final paragraph Review of Systems Constitutional: Constitutional: Reports no additional constitutional complaints Eyes: Eyes: Reports no additional eye complaints ENT: Reports system reviewed and no additional complaints, except as documented Cardiovascular: Cardiovascular: Reports no additional cardiovascular complaints Respiratory: Respiratory: Reports no additional respiratory complaints Gastrointestinal: Gastrointestinal: Reports no additional gastrointestinal complaints Genitourinary: Genitourinary: Reports no additional male genitourinary complaints Musculoskeletal: Musculoskeletal: Reports no additional musculoskeletal complaints Integumentary/Breasts: Skin/Breast: Reports system reviewed and no additional complaints, except as docu Functional Status Ambulation Ability Ability to Ambulate 10 Feet: Contact Guard Ability to Ambulate 50 Feet With 2 Turns: Contact Guard Ambulation Assistive Devices: Walker, Wheeled Transfers Ability Ability to Transfer In/Out of Chair: Standby Assistance Exam Const: General: comfortable and no acute distress HENMT: General nose exam: Normal nares present Mouth: Yes moist mucous membranes Eyes: General: appearance normal, both eyes and all related structures Neck: Neck: supple and no JVD Resp: Effort & Inspection: normal respiratory effort Auscultation: clear to auscultation bilaterally Cardio: Rate: regular rate Rhythm: regular rhythm GI: GI Palp: Yes Soft to palpation Auscultation: normal bowel sounds Skin: General skin exam: normal color and no rashes or lesions noted Neuro: Other: Patient is awake and alert follows commands does not seem to be in any distress his weakness overall has improved but he has is attitude and motivation which does not allow him to engage in the therapy and is refusing to do so periodically over the previous several days Extrem: General: normal to inspection Objective Data Vital Signs Vital Signs: Vital Signs - 24 hr 04/09/19 14:39 04/09/19 20:43 04/09/19 22:00 Temperature 36.6 C 36.6 C Pulse Rate 78 80 72 Respiratory Rate 16 24 H Blood Pressure 109/55 L 107/61 Pulse Oximetry 98 96 04/10/19 06:00 04/10/19 09:12 Temperature 36.4 C Pulse Rate 64 64 Respiratory Rate 20 Blood Pressure 114/54 L Pulse Oximetry 94 Intake/Output Intake/Output: Intake & Output 04/07/19 04/08/19 04/09/19 04/10/19 23:59 23:59 23:59 23:59 Intake Total 400 600 720 120 Output Total 450 Balance 400 600 270 120 Meds/Results Medications: Active Medications Generic Name Dose Route Start Last Admin Trade Name Freq PRN Reason Stop Dose Admin Acetaminophen 650 mg 03/23/19 17:44 04/05/19 15:06 Tylenol Tablet PO 650 mg Q4H PRN Administration Headache Allopurinol 100 mg 03/24/19 08:00 04/10/19 09:11 Zyloprim PO 100 mg DAILY@0800 [facility] Administration Amoxicillin/Clavulanate Potassium 1 tablet 04/07/19 21:00 04/10/19 09:12 Augmentin 875-125 Mg Tab PO 1 tablet Q12HR MAXINE Administration Aspirin 81 mg 03/24/19 08:00 04/10/19 09:11 Aspirin Chewable PO 81 mg DAILY@0800 [facility] Administration Carvedilol 6.25 mg 03/23/19 21:00 04/10/19 09:12 Coreg PO 6.25 mg Q12HR MAXINE Administration Dextrose 12.5 gm 03/23/19 15:53 Dextrose 50% Syringe IV PUSH PRN PRN Hypoglycemia Protocol Diltiazem HCl 30 mg 03/23/19 18:00 04/10/19 05:38 Cardizem Tab PO 30 mg Q6HR MAXINE Administration Famotidine 20 mg 03/23/19 21:00 04/10/19 09:13 Pepcid PO 20 mg Q12HR MAXINE Administration Fenofibrate 48 mg 03/24/19
[2019-04-10 12:19] LABS: Glucose Point of Care 292 (65-105)
--- NOTE | 2019-04-10 12:38 | PCDIET ---
Nutrition Follow-Up Complete: Nutrition Diagnosis: Inadequate oral intake related to multiple medical issues, primarily recent SDH, as evidenced by intakes 0-25% and need for supplemental enteral feedings. Nutrition Goals: Intakes improved to >50%, tube feeding tolerance (when given) Goals met. Intakes averaged ~65% from last review, but this is somewhat of a decline from last review. No tolerance issues to oral/enteral feeding reported. Last recorded weight is 120 kg. Recommend obtaining new weight. Bowel Motility: Last documented bowel movement 04/07/19. Labs Reviewed: Glu (243) Meds Noted: Augmentin, Novolog, Atrovent, Niacin, Lasix, Lantus, Protonix, Metamucil Additional Notes: Head incision open to air; no other documented skin breakdown. Recommend continuing present diet/goals. Nutrition Monitoring and Evaluation: Follow up every Tuesday/Tuesday.
--- NOTE | 2019-04-11 14:21 | PCPTNOTE ---
Discharge summary for PT was completed on Tuesday, patient was not discharged until 04/10/19 due to medical issues. Patient had continued to refuse PT treatment after discharge completed so status unchanged. Natalie Schwarz PT
--- NOTE | 2019-04-15 01:59 | DS_ITS ---
DATE OF DISCHARGE: 04/10/2019 DISCHARGE ACUTE REHAB DIAGNOSES: Brain dysfunction, traumatic with etiological diagnosis of subdural hematoma. DISCHARGE ACTIVE COMORBID CONDITIONS: Atrial fibrillation, hypertension, chronic kidney disease, diabetes mellitus with peripheral neuropathy, chronic obstructive pulmonary disease, and renal cell carcinoma with metastasis. REASON FOR ADMISSION: 74-year-old left-handed white male presented to [facility] Emergency Room subsequent to an episode of apnea with desaturation in the early 70s while at the [facility]. In the emergency department, saturation was 85% on the room air. He was placed on supplemental oxygen. Physical examination documented bilateral rhonchi and rales with bilateral lower extremity edema. Chest x-ray with patchy airspace opacities and new small bilateral pleural effusion. BNP greater than 10,000. Troponin 0.05. WBC is 15,000, and UA was suggestive of underlying UTI. CT scan of the head demonstrated persistent subdural hematoma with small amount of pneumocephalus, which was decreasing in the volume. Neurology was consulted and felt there was no need for neurosurgical intervention. Bilateral upper lower extremity Dopplers were negative for DVT. On 03/12/2019, the patient had witnessed tonic-clonic activity as well as right eye deviation and facial twitching. He was stabilized with Keppra, Vimpat, and Ativan. EEG was monitored, which showed left hemispheric slowing and moderate generalized slowing but no seizure activity. He was continued on Keppra 1500 mg twice a day. On 02/26/2019, he was noted to have purulent drainage from his craniotomy site and he was started on linezolid, cefepime, and Flagyl. Aspirin was restarted for the underlying coronary artery disease, but Plavix was held. Repeat CT on 03/06/2019 was stable. He had a fall on 03/16/2019. On 03/19/2019, he reported bilateral frontal headaches. Repeat CT on 03/19/2019 showed no intracranial process and he ultimately weaned off oxygen and currently on the room air. For the strict monitoring of INR, as he is on Lasix 20 mg per day as well. DVT prophylaxis with heparin and diet with thin liquids, supplemental tube feeding if he eats less than 50%, but the patient continued to have aphasia. The patient had been hospitalized prior to this hospitalization at [facility] in [place] from 02/06 to 02/21 for the setting of left convexity subdural hematoma subsequent to fall for which he underwent left craniotomy and evacuation on 02/[address] Garcia and was discharged to the [facility] from where he was transferred at this time for all this problem. LEVEL OF FUNCTION AT THE TIME OF ADMISSION AT THE REHAB CARE: The patient required the setup for eating, supervision for oral hygiene, partial assistance for toileting, substantial assistance for bathing, supervision for upper body dressing, substantial assistance for lower body dressing, partial assistance for footwear, setup for the rolling in bed. Partial assistance for sit to lying, lying to sitting, sit to stand, chair transfer, toilet transfer, car transfer, and walking 10 feet. He was unable to walk 50 feet with 2 turns, unable to walk 150 feet. He required partial assistance forward 10 feet on uneven surfaces, though he was unable to walk on curb or step, 4 steps, 12 steps, and he required partial assistance for the picking up object, wheelchair for 50 feet as well. He was unable to do 150 feet wheelchair anyhow. ANTICIPATED REHAB GOALS AT THE TIME OF ADMISSION: To make him independent in most of the modalities except requiring supervision for bathing, setup for the walking 10, 50 feet with 2 turns, 150 feet, 10 feet on uneven surfaces, supervision for curb or step, 4 steps, 12 steps, and setup for the picking up object. LEVEL OF
== END 2019-04-10 14:30 | disposition home health service (06) | DRG 949 ==
PROVIDERS: Admitting Provider Psychiatry & Neurology Neurology; Visit Provider Psychiatry & Neurology Neurology
DX: S06.5X0D Traumatic subdural hemorrhage without loss of consciousness, subsequent encounter (principal); J18.9 Pneumonia, unspecified organism; R47.01 Aphasia; G81.93 Hemiplegia, unspecified affecting right nondominant side; C77.9 Secondary and unspecified malignant neoplasm of lymph node, unspecified; C64.9 Malignant neoplasm of unspecified kidney, except renal pelvis; E87.1 Hypo-osmolality and hyponatremia; Z48.811 Encounter for surgical aftercare following surgery on the nervous system; E11.22 Type 2 diabetes mellitus with diabetic chronic kidney disease; E11.42 Type 2 diabetes mellitus with diabetic polyneuropathy; F17.210 Nicotine dependence, cigarettes, uncomplicated; I48.91 Unspecified atrial fibrillation; I12.9 Hypertensive chronic kidney disease with stage 1 through stage 4 chronic kidney disease, or unspecified chronic kidney disease; I25.10 Atherosclerotic heart disease of native coronary artery without angina pectoris; J44.9 Chronic obstructive pulmonary disease, unspecified; N18.9 Chronic kidney disease, unspecified; R56.9 Unspecified convulsions; R60.9 Edema, unspecified; W19.XXXD Unspecified fall, subsequent encounter; Z93.1 Gastrostomy status; Z98.890 Other specified postprocedural states; Z79.82 Long term (current) use of aspirin; Z79.4 Long term (current) use of insulin
CPT/HCPCS: 36415; 70450; 71046; 80048; 81001; 82947; 85025; 87081; 92507; 92523; 94640; 97110; 97116; 97162; 97166; 97530; 97535; A9270; J1644; J1815; J8540